=== PATIENT | female | born 1940 | race Caucasian/White ===

== ENCOUNTER 2025-02-28 19:01 | Inpatient (IN) | payer MEDICARE, BC, SELFPAY ==
[2025-02-28 14:14] VITALS: BP 135/74
[2025-02-28 14:52] LABS: % Basophils 0.2 % (0-2); % Eosinophils 0.9 % (0-6); % Immature Granulocytes 0.5 % (0-0.5); % Lymphocytes 8.5 % (20.5-51.1); % Monocytes 7.5 % (1.7-9.3); % Neutrophils 82.4 % (42.2-75.2); Absolute Eosinophils 0.1 10^3/uL (0-0.7); Absolute Immature Granulocytes 0.1 10^3/uL (0-0.05); Absolute Lymphocytes 1.2 10^3/uL (1.2-3.4); Absolute Monocytes 1.1 10^3/uL (0.1-0.6); Absolute Neutrophils 11.7 10^3/uL (1.4-6.5); Hematocrit 39.4 % (37.0-47.0); Mean Corpuscular Volume 87.9 fL (81.0-99.0); Mean Platelet Volume 9.8 fL (7.4-10.4); Nucleated Red Blood Cells % 0 %; Platelet Count 299 10^3/uL (130-400); Red Blood Cell Count 4.48 10^6/uL (4.20-5.40); Red Cell Dist. Width 14.4 % (11.5-14.5); White Blood Cell Count 14.2 10^3/uL (4.8-10.8)
[2025-02-28 15:13] LABS: ALT (SGPT) 16 U/L (0-35); AST (SGOT) 47 U/L (14-36); Albumin 3.6 g/dl (3.5-5.0); Alkaline Phosphatase 59 U/L (38-126); Blood Urea Nitrogen 22 mg/dl (7-17); Calcium 8.8 mg/dl (8.4-10.2); Carbon Dioxide 26 mmol/L (22-30); Chloride 103 mmol/L (98-107); Glucose 107 mg/dl (70-99); Potassium 3.9 mmol/L (3.5-5.1); Sodium 136 mmol/L (135-145); Total Bilirubin 1.1 mg/dl (0.2-1.3); Total Protein 6.3 g/dl (6.3-8.2); eGFR > 60.00
[2025-02-28 15:25] LABS: NT-proBNP 316 pg/ml; Troponin I 0.012 ng/ml
--- NOTE | 2025-02-28 16:19 | ED.GENMED ---
History of Present Illness
General
Chief Complaint: Breathing Problem
Time Seen by Provider: 02/28/25 16:02
History of Present Illness
History of Present Illness:
84-year-old female who presents to the emergency department for evaluation of shortness of breath for the past week. She was seen urgent care earlier in the week and treated for bronchitis with antibiotics and steroids but did not feel better.
Return to urgent care today and had chest x-ray showing a pleural effusion. Denies any fevers or chills. She has a mild dry cough. No URI symptoms. Denies any chest pain.
Review of Systems
Review of Systems
Allergies reviewed?: Yes
All Other Systems: ROS reviewed and negative except as documented in HPI and ROS
Phy Exam
Physical Exam
Physical Exam:
GEN: Well appearing, NAD, WDWN
HEENT: Oral mucosa moist, no scleral icterus
Cardiac: Regular rate and rhythm, no murmurs
Lung: Tachypneic, no accessory muscle use, grossly diminished breath sounds on the left
MSK: No gross deformity or injuries
Skin: Good color, no pallor or jaundice, no rashes
Neuro: AO x3, moves all extremities freely
Psych: Calm, cooperative
Scores
Heart Failure Risk
Heart Failure Risk Score: Not Applicable
Course
Orders/Labs/Results
Orders:
Orders
02/28/25 14:20
Electrocardiogram (*1) Urgent
Reason for Study: Chest Pain
EKG- Treatment ONCE
CR Chest - 2 Views Urgent
Comment:
Reason For Exam: sob/garsia x 1 week
02/28/25 14:40
Complete Blood Count/With Diff Urgent
Comprehensive Metabolic Panel Urgent
Free T4 Urgent
NT-proBNP Urgent
TSH Reflex To Free T4 Urgent
Comment: ADD ON
Troponin I Urgent
02/28/25 Dinner
Cholesterol Lowering
At Your Request: Full Participation
Cholesterol Lowering: Sodium, 2 Gram
02/28/25 18:40
Add On- LAB Urgent
Tests Added?: tsh with free t4 reflex
CefTRIAXone [Rocephin] 1,000 mg IV NOW STA
Doxycycline [Vibramycin] 100 mg PO NOW STA
02/28/25 18:41
Admit/Transfer Patient As Directed
Co-Sign Provider:
Level of Care: Inpatient admission
Assign to:: Medical/Surgical
Physician / Group: nancy yadav
Diagnosis: Large left-sided pleural effusion, anxiety
Reason for Hospitalization: Large left-sided pleural effusion, anxiety
Expected length of stay greater than two midnights?: Yes
ELOS- Estimated Length of Stay in days: 4
I certify the patient meets the requirements for IP care: Yes
02/28/25 18:47
PRN Pain Medication Management As Directed
May give lesser potent ordered pain med per pt: Yes
preference::
Protocol:: Medication orders for pain may be administered in a
manner that supports deferring to patient preference
when the pt is:
- Requesting an ordered lesser potent pain medication.
Least to most potent pain medications are defined
as: acetaminophen < NSAID < tramadol < opioids
(morphine, oxycodone, hydromorphone).
- Requesting a lesser dose of the same medication IF
ORDERED.
- Requesting a less intrusive route of administration
if both routes are prescribed by the provider (PO <
IV).
02/28/25 18:48
Code Status As Directed
Resuscitation Status: Full Code
02/28/25 19:09
COVID-19 Antigen Urgent
Source: Nasal Swab
Influenza A+B Rapid Molecular Urgent
NOLVIA Source: Nasal Swab
Specimen Description:
02/28/25 20:49
Acetaminophen [Tylenol] 650 mg PO Q4HPRN PRN
Diphenhydramine [Benadryl] 25 mg PO HSPRN PRN
Heparin 5,000 units SC Q12
Ipratropium/Albuterol Sulfate [Duoneb] 3 ml INH R Q4HPRN PRN
02/28/25 20:49
Add On- LAB Routine
Tests Added?: Body Fluid Triglycerides
IRAD CONSULT Routine
Consulting Provider: Rashard Mejia
Was physician already notified: Yes
Procedure being ordered, including laterality if applicable: Thoracentesis left-sided pleural effusion
Acknowledgement that appropriate orders are entered: Yes
Acid Fast Culture & Smear Routine
NOLVIA Source: Pleural Fluid
Specimen Description:
Comment: post procedure
Body Fluid Amylase Routine
Fluid Source: Pleural
Body Fluid Cell Count Routine
What is the Body Fluid: pleural fluid
Comment: post procedure
Body Fluid Glucose Routine
Fluid Source: Pleural
Body Fluid LDH Routine
Fluid Source: Pleural
Body Fluid Protein Routine
Fluid Source: Pleural
Body Fluid Triglycerides Routine
Fluid Source: Pleural
Body Fluid pH Routine
Fluid Source: Pleural
Glucose Routine
Hematocrit Routine
LDH Routine
Comment: post procedure, add on to morning labs if already drawn
Total Protein Routine
Comment: post procedure, add on to morning labs if already drawn
Fluid Culture with Gram Stain Routine
NOLVIA Source: Pleural Fluid
Specimen Description:
Comment: post procedure
Fungus Culture Routine
NOLVIA Source: Pleural Fluid
Specimen Description:
Fungus Smear Routine
NOLVIA Source: Pleural Fluid
Specimen Description:
Gram Stain Routine
NOLVIA Source: Pleural Fluid
Specimen Description:
Comment: POST PROCEDURE
Activity As Directed
Activity Level: With Assistance
Elevate head of bed [Head of Bed-Restrictions] As Directed
Elevation Level: 45 degrees
Frequency: At all times
Intake/ Output As Directed
Frequency: Per unit guidelines
Vital Signs As Directed
Frequency: Per unit guidelines
Weight As Directed
Frequency: Daily
IRAD Cytology Routine
Source: Pleural Fluid, Left
Clinical Impression: left plueral effusion unclear
O2 Therapy [RESP] Routine
Nasal Cannula Liter Flow: 2 LPM
Titrate/Wean O2 to maintain O2 sat greater than (%): 92
Pulse Ox/spot Check [RESP] Routine
Quantity: 1
Pt Eval And Treat Routine
Activity Level: As Tolerated
DX Deep Vein Thrombosis Video Routine
02/28/25 22:00
Methimazole [Tapazole] 10 mg PO BID
Sertraline HCl [Zoloft] 25 mg PO HS
03/01/25 06:00
CT Chest With Iv Contrast IN AM
Comment:
Reason For Exam: Large left pleural effusion
Complete Blood Count/With Diff IN AM
Comprehensive Metabolic Panel IN AM
03/01/25 08:00
Doxycycline [Vibramycin] 100 mg PO Q12
Fenofibrate 145 [Tricor] 145 mg PO DAILY
Losartan [Cozaar] 100 mg PO DAILY
Sertraline HCl [Zoloft] 50 mg PO DAILY
03/01/25 20:00
CefTRIAXone [Rocephin] 1,000 mg IV Q24H
03/02/25 06:00
Complete Blood Count/With Diff IN AM
Comprehensive Metabolic Panel IN AM
03/03/25 06:00
Complete Blood Count/With Diff IN AM
Comprehensive Metabolic Panel IN AM
Abnormal Lab Results
02/28/25
14:40
WBC 14.2 H 10^3/uL
(4.8-10.8)
Abs Immat Gran (auto) 0.1 H 10^3/uL
(0-0.05)
Absolute Neuts (auto) 11.7 H 10^3/uL
(1.4-6.5)
Absolute Monos (auto) 1.1 H 10^3/uL
(0.1-0.6)
Neutrophils % 82.4 H %
(42.2-75.2)
Lymphocytes % 8.5 L %
(20.5-51.1)
BUN 22 H mg/dl
(7-17)
Glucose 107 H mg/dl
(70-99)
AST 47 H U/L
(14-36)
TSH (Reflex) 27.80 H uIU/ml
(0.47-4.68)
Free T4 0.62 L ng/dl
(0.78-2.19)
02/28/25 14:40
02/28/25 14:40
Vital Signs
Initial and Last Documented VS:
Initial Vital Signs
Temp Pulse Resp BP Pulse Ox
97.6 F 90 20 135/74 97
02/28/25 14:14 02/28/25 14:14 02/28/25 14:14 02/28/25 14:14 02/28/25 14:14
Last Documented Vital Signs
Temp Pulse Resp BP Pulse Ox
98.3 F 85 20 169/83 98
02/28/25 21:08 02/28/25 22:11 02/28/25 22:11 02/28/25 21:08 02/28/25 22:11
MDM/Problems Addressed
MDM/Problems Addressed:
X-ray reveals a large left pleural effusion, will admit for IR consultation and further management
*Critical Care Note
Total Time (30-74mins, 75-104mins- exclusive of procedures): Not Applicable
ED Attending Note
-
Portions of this chart may have been created with voice recognition software.� Occasional wrong word or��sound alike� substitutions may have occurred due to the inherent limitations of voice recognition software.
Discharge Plan
Departure
Patient Disposition: Admit
Date of Disposition: 02/28/25
Time of Disposition: 16:22
Admit to: Med/Surg
Presentation/result/management discussed w/ accepting MD/DO: Hospitalist
Discharge Problem:
Pleural effusion
Interventions
Interventions:
*Risk Screen - Suicide Last Done: 02/28/25 14:14
*General Assessment Last Done: 02/28/25 14:14
*Neglect/Abuse Screening Last Done: 02/28/25 14:14
*ED- Fall Risk Assessment Last Done: 02/28/25 19:10
*ED COVID-19 Vaccine History Last Done: 02/28/25 20:47
*Nursing Disposition Last Done: 02/28/25 20:47
ED- Cardiac Assessment Last Done: 02/28/25 16:00
ED- Pulmonary Assessment Last Done: 02/28/25 16:00
Discharge Date and Time
Discharge Date/Time: 02/28/25 20:48
--- NOTE | 2025-02-28 18:06 | HPS.HSE ---
Family Physician
-
Family Physician: * NONE
Chief Complaint
-
Shortness of breath large pleural effusion on chest x-ray from urgent care
History of Present Illness
84-year-old female from her apartment, where she lives alone who was seen earlier in the week at urgent care treated for bronchitis with albuterol inhaler twice daily x 5 days and prednisone 20 mg twice daily x 5 days but was not feeling better.
She returned to the urgent care today who did chest x-ray showing a large left-sided pleural effusion and referred her to the ER for evaluation. She reports shortness of breath x 1 week with a dry cough. She denies headache, fever, chills, sore
throat, chest pain, palpitations, abdominal pain, nausea, vomiting, diarrhea, urinary symptoms, sick contacts. Her daughter states her anxiety has been extremely increased to the point of crying. She increased her Zoloft to 25 mg twice daily for
the past week until she can get her into her PCP I advised her I will give her her p.m. dose then started at 50 mg daily as her LFTs are normal. I advised her to still keep appointment with her PCP. Patient is very hard of hearing she does report
feeling better on oxygen however she was not hypoxic
She has past medical history COPD, HTN, HLD, depression/anxiety.
Medical History
Past Medical History
Past Medical History: Reports Other
Additional Past Medical History:
COPD
HTN
HLD
Depression/Anxxiety
[place]
Past Surgical History: Reports Other
Additional Past Surgical History:
Left shoulder replacement
Left elbow replacement
Cholecystectomy
Social History
Tobacco: Former Smoker
Alcohol: None
Drug: None
Personal: Single
Living: Alone
Employment: Retired
Family History
Family History: Not pertinent
Allergies / Home Medications
Allergies reflects when Allergies were last updated in [facility].
Home Medications with original date entered in [facility]
Allergy/Medication List:
Allergies
Allergy/AdvReac Type Severity Reaction Status Date / Time
No Known Allergies Allergy Unverified 02/28/25 14:14
Home Medications
fenofibrate 145 mg PO DAILY 02/28/25
fluticasone propionate 1 puff inhalation BID 02/28/25
losartan 100 mg tablet 100 mg PO DAILY 02/28/25
methimazole 10 mg PO BID 02/28/25
sertraline 25 mg tablet (Zoloft) 25 mg PO DAILY 02/28/25
Review of Systems
-
History Source: Patient and Family (Daughter and son-in-law at bedside)
A 12 point ROS was completed and negative except as noted: Yes
Constitutional: Reports Other (Reported anxiety); Denies Fever or Chills
EENT: Denies Sore Throat or Runny Nose
Respiratory: Reports Cough (Dry) and Trouble Breathing
Cardiac: Denies Chest Pain, Diaphoresis, Palpitations or Syncope
Abdomen/GI: Denies Abdominal Pain, Nausea, Vomiting, Diarrhea, Constipated, Bloody Stools or Black Stools
: Denies Dysuria, Frequency, Flank Pain, Incontinence, Difficulty Voiding or Urgency
Musculoskeletal: Denies Joint Pain or Edema
Skin: Denies Itching or Rash
Neurological: Denies Dizzy or Headache
Endocrine: Reports No Symptoms
Hematologic/Lymphatic: Reports No Symptoms
Psych: Reports Calm
Physical Exam
Vital Signs
Vital Signs
Temp Pulse Resp BP Pulse Ox
97.6 F 90 20 135/74 97
02/28/25 14:14 02/28/25 14:14 02/28/25 14:14 02/28/25 14:14 02/28/25 14:14
Physical Exam
General: Conversant; No Pain, Fever or Chills
HEENT: NormoCephalic, Anicteric, Moist mucous membranes, PERRLA, [place] Conjunctivae, No Ptosis and Other (Chronic [place])
Respiratory: Other (Absent breath sounds left lung right CTA)
Cardiac: S1/S2 and Regular Rhythm; No Murmur, Rub, Gallop or Peripheral Edema
Breast: Deferred by me
GI: Soft, Non Tender, Non Distended, Normal Bowel Sounds and No Hepatosplenomegaly
Genito-urinary: Deferred by me
Musculoskeletal: No Clubbing, No Cyanosis and No Edema
Skin: Warm and Dry; No Rash
Neuro: AO x 3, No Motor Deficits, Nonfocal/grossly intact, Cranial Nerves Intact and No Sensory Deficits; No Slurred Speech, Facial Droop, Tremors or Sedated
Psych: Calm
Laboratory Results
-
02/28/25 14:40
02/28/25 14:40
Laboratory Results
Total Bilirubin 1.1 mg/dl (0.2-1.3) 02/28/25 14:40
AST 47 U/L (14-36) H 02/28/25 14:40
ALT 16 U/L (0-35) 02/28/25 14:40
Alkaline Phosphatase 59 U/L (38-126) 02/28/25 14:40
Troponin I 0.012 ng/ml 02/28/25 14:40
Data Reviewed
-
Lab Data: Labs Reviewed by me
Impression/Plan
-
Impression/plan:
Admit to MedSurg
#Large left pleural effusion unclear etiology
#Leukocytosis likely secondary to recent prednisone 20 mg twice daily
WBC 14.2 with left shift, afebrile 97.6F, HR 90, 135/74
97% RA, 99% 2 L nasal cannula
- Consult IR for Thoracentesis with cytology
- Monitor pulse oximetry
- IV Rocephin, p.o. doxycycline 1 mg twice daily
- Check CT chest with contrast in a.m.
- Consult pulmonary
CXR: Large left pleural effusion with associated atelectasis and/or pneumonia
EKG: Accelerated junctional rhythm 89 bpm, QTc 438 MS no previous EKGs
#COPD�no acute exacerbation
-Continue albuterol inhaler as needed, fluticasone 100/50 mcg 1 puff twice daily
#Acute on chronic anxiety/depression
Patient on Zoloft 25 mg daughter increased Zoloft to 25 mg twice daily due to extreme anxiety, crying tearful for several months she increased it over the past 1 week
I will give Zoloft 25 mg this evening then start Zoloft 50 mg daily given LFTs are normal
I advise daughter to keep her appointment with patient's PCP to make her aware and follow patient's lab work while on this medication
-We will check TSH with free T4 reflex given history of hyperthyroidism
#HTN
BP 135/74
Continue losartan 100 mg daily with hold parameters
#HLD
- Continue fenofibrate 145 mg daily
#Hyperthyroidism
-Check TSH with free T4 reflex
-Continue methimazole 10 mg twice daily
#Insomnia
- Patient reports melatonin makes her feel agitated and itchy
- Will try Benadryl
DVT prophylaxis
Subcu heparin
Full code
[2025-02-28 19:10] VITALS: BMI 33.1
[2025-02-28] MEDS: VIBRAMYCIN 100 MG PO (19:14)
[2025-02-28] MEDS: STERILE WATER FOR INJECTION 10 ML IV (19:14)
[2025-02-28] MEDS: ROCEPHIN 1000 MG IV (19:14)
[2025-02-28 19:22] VITALS: BP 180/86
[2025-02-28 19:35] LABS: COVID-19 Antigen Negative (Negative)
--- NOTE | 2025-02-28 19:43 | W.PN.UPDATE ---
Update Note
Progress Note Update
This note serves as an addendum to the H&P by principal network engineer JOSY Concha VILLEDA
HPI
84F remote HX former smoker, COPD, not on home O2 seen at ER:
- for evaluation of shortness of breath for the past week.
- was seen urgent care earlier in the week and treated for bronchitis with antibiotics and steroids but did not feel better. - Return to urgent care today and had chest x-ray showing a pleural effusion.
- mild dry cough. No URI symptoms.
ROS:
Denies any fevers or chills
Denies any chest pain.
Reviewed VS: unremarkable
Reviewed VS: afebrile
PE
Gen: NAD, wearing NC O2
HEENT: [place] , nl speech
Neck: supple
Lungs: symmetric AE. No wheeze
Cor: RRR S1 S2
Abdomen: soft benign
STAGE RIGGER: AAO#, NFND
MS: no edema
Psych: nl mood and nl affect
Labs
02/28/25 02/28/25
14:40 19:09
WBC 14.2 H
BUN 22 H
Creatinine 0.8
AST 47 H
Troponin I 0.012
Ldg-N-Euwucybyazu Pept 316
SARS-CoV-2 Antigen Negative
CXR
Large left pleural effusion with associated atelectasis and/or PNA
EKG: Accelerated junctional rhythm 89 bpm, QTc 438 MS no previous EKGs
ASSESSMENT & PLAN
Symptomatic new Large left pleural effusion unclear etiology
- DDX; parapneumonic vs. Malignant
- Leukocytosis likely secondary to recent prednisone 20 mg twice daily
- afebrile , hemodynamically stable
- 97% RA, 99% 2 L nasal cannula
- Empiric IV CFTZ and PO Doxy
- Check CTC with contrast in AM
- Pul Consult
- IR consult for Dx-tic and Rx-tic Lt sided thoracentesis with cytology
HX COPD� no acute flare
- on BEET FLUMER albuterol inhaler as needed, fluticasone 100/50 mcg 1 puff twice daily
HX anxiety/depression
crying tearful for several months
- escalde Zoloft 25 mg twice daily [address] of once daily due to extreme anxiet
- appointment with patient's PCP to make her aware and follow patient's lab work while on this medication
- TSH with free T4 reflex given history of hyperthyroidism
Benign HTN
- c/w losartan 100 mg daily with hold parameters
HLD
- cont fenofibrate 145 mg daily
Hyperthyroidism on Methimazole
- check TSH with free T4 reflex
- cont methimazole 10 mg BID
Insomnia
- melatonin makes her feel agitated and itchy
DVT prophylaxis: SQH
Full Code:
IP MS
[2025-02-28 20:29] LABS: Free T4 0.62 ng/dl (0.78-2.19)
[2025-02-28 21:08] VITALS: BP 169/83
[2025-02-28 21:09] VITALS: BMI 31.8
[2025-02-28] MEDS: HEPARIN SC (21:49)
[2025-02-28] MEDS: BENADRYL 25 MG PO (21:49)
[2025-02-28] MEDS: TAPAZOLE 10 MG PO (21:49)
[2025-02-28] MEDS: DUONEB 3 ML INH (22:07)
[2025-02-28 23:00] VITALS: BP 166/84
[2025-03-01] VITALS (7 sets, daily range): BP systolic 79–169; BP diastolic 65–83; PULSE 86; O2SAT 97; BMI 31.8
[2025-03-01 06:56] LABS: % Basophils 0.3 % (0-2); % Eosinophils 1.6 % (0-6); % Immature Granulocytes 0.6 % (0-0.5); % Lymphocytes 7.9 % (20.5-51.1); % Monocytes 8.8 % (1.7-9.3); % Neutrophils 80.8 % (42.2-75.2); Absolute Eosinophils 0.2 10^3/uL (0-0.7); Absolute Immature Granulocytes 0.1 10^3/uL (0-0.05); Absolute Monocytes 1.1 10^3/uL (0.1-0.6); Absolute Neutrophils 9.7 10^3/uL (1.4-6.5); Hematocrit 35.5 % (37.0-47.0); Hemoglobin 11.8 g/dL (12.0-16.0); Mean Corp Hgb Conc. 33.2 g/dL (33.0-37.0); Mean Corpuscular Hgb 29.3 pg (27.0-31.0); Mean Corpuscular Volume 88.1 fL (81.0-99.0); Mean Platelet Volume 9.8 fL (7.4-10.4); Nucleated Red Blood Cells % 0 %; Platelet Count 257 10^3/uL (130-400); Red Blood Cell Count 4.03 10^6/uL (4.20-5.40); Red Cell Dist. Width 14.2 % (11.5-14.5)
[2025-03-01 07:29] LABS: ALT (SGPT) 14 U/L (0-35); AST (SGOT) 45 U/L (14-36); Alkaline Phosphatase 52 U/L (38-126); Blood Urea Nitrogen 19 mg/dl (7-17); Calcium 8.5 mg/dl (8.4-10.2); Carbon Dioxide 22 mmol/L (22-30); Chloride 105 mmol/L (98-107); Estimated Creatinine Clearance 50 ml/min; Glucose 85 mg/dl (70-99); Potassium 4.1 mmol/L (3.5-5.1); Sodium 135 mmol/L (135-145); Total Bilirubin 1.1 mg/dl (0.2-1.3); Total Protein 5.6 g/dl (6.3-8.2); eGFR > 60.00
[2025-03-01] MEDS: TAPAZOLE 10 MG PO ×2 (08:30→21:30)
[2025-03-01] MEDS: VIBRAMYCIN 100 MG PO ×2 (08:30→21:31)
[2025-03-01] MEDS: ZOLOFT 50 MG PO (08:30)
[2025-03-01] MEDS: TRICOR 145 MG PO (08:31)
[2025-03-01] MEDS: COZAAR 100 MG PO (08:31)
[2025-03-01] MEDS: HEPARIN 5000 UNITS SC ×2 (08:35→21:29)
--- NOTE | 2025-03-01 10:46 | W.PN.HOSP.TC ---
Today's Communication/Plan
-
Assessment / Plan
Assessment / Plan
acute hypoxic respiratory failure secondary to left sided large pleural effusion
-ir to drain
-send fluid for analysis
-check ct scan to assess the extent/interstitial disease/nodules/neoplastic disease
-wean o2 as tolerated
sepsis secondary to likely pna with pleural effusion
-iv antibiotics for CAP coverage
-no cultures obtained
COPD�no acute exacerbation
-Continue albuterol inhaler as needed, fluticasone 100/50 mcg 1 puff twice daily
Acute on chronic anxiety/depression
Patient on Zoloft 25 mg daughter increased Zoloft to 25 mg twice daily due to extreme anxiety, crying tearful for several months she increased it over the past 1 week
I will give Zoloft 25 mg this evening then start Zoloft 50 mg daily given LFTs are normal
I advise daughter to keep her appointment with patient's PCP to make her aware and follow patient's lab work while on this medication
-We will check TSH with free T4 reflex given history of hyperthyroidism
HTN
Continue losartan 100 mg daily with hold parameters
HLD
- Continue fenofibrate 145 mg daily
Hyperthyroidism
-Check TSH with free T4 reflex
-Continue methimazole 10 mg twice daily
Insomnia
- Reports melatonin makes her feel agitated and itchy
- Will try Benadryl
Anticipated Discharge: 24 - 48 hours
Subjective/Interval History
-
Date of Service: March 01, 2025
seen and examiend
no new complaitns.
no acute overnight events
[facility] - hearing aids charging
son irish at bedisde provided update
Objective Data
-
Labs:
Laboratory Results
02/28/25 03/01/25
20:49 06:36
WBC 12.0 H
Hgb 11.8 L
Hct Cancelled 35.5 L
Plt Count 257
Sodium 135
Potassium 4.1
Chloride 105
Carbon Dioxide 22
BUN 19 H
Creatinine 0.7
Glucose Cancelled 85
Calcium 8.5
Total Bilirubin 1.1
AST 45 H
ALT 14
Alkaline Phosphatase 52
Vital Signs:
Vital Signs
Temp Pulse Resp BP Pulse Ox
97.9 F 85 20 158/77 97
03/01/25 07:40 03/01/25 08:31 03/01/25 07:40 03/01/25 08:31 03/01/25 07:40
Physical Exam
-
General: Well Developed and Well Nourished
HEENT: Normocephalic and Atraumatic
Respiratory: Decreased Breath Sounds (abscent breath sound LLL. otherwise cta through rest of left and all of right lung)
Cardiac: Regular Rhythm and S1/S2
Breast: Deferred by me
GI: Soft, Nontender, Nondistended and Normal Bowel Sounds
Rectal: Deferred by Provider
Skin: Warm and Dry
Neuro: Awake, Alert, Oriented and AO x 3
Psych: Calm
[2025-03-01 12:25] LABS: Body Fluid pH 7.37
[2025-03-01 12:28] LABS: Body Fluid WBC 3691 /CUMM
[2025-03-01 12:32] LABS: Body Fluid Second Tech BP
[2025-03-01 12:55] LABS: Body Fluid Amylase 37 U/L; Body Fluid Glucose 68 mg/dl; Body Fluid LDH 669 U/L; Body Fluid Protein 3.8 g/dl; Body Fluid Triglycerides < 30 mg/dl
--- NOTE | 2025-03-01 13:37 | CON.PUL ---
Consultation
Consultation Request
Date/Time Consultation Requested: 02/28/2025
Date/Time Consultation Performed: 03/01/2025
Requesting Provider: Ricardo Guaman
Performing Provider: Pattie Ceballos
Reason for Consultation: Pleural effusion
Medical History
-
Chief Complaint: Shortness of breath
History of Present Illness:
Patient is a very pleasant 84-year-old female who presents to the emergency room for worsening shortness of breath. Patient reports that for about 7 to 10 days she has had cough and shortness of breath concerning for bronchitis. She was evaluated
as an outpatient at an urgent care and was treated with albuterol inhaler as well as prednisone for 5 days but she has not felt better. She returned to the urgent care where x-ray was performed which showed a large left-sided pleural effusion and
was referred to emergency room. Patient does report shortness of breath with mild cough. Does not use any expectoration or hemoptysis. No fever, chills, chest pain, pleuritic discomfort etc. Does not report any runny nose, sore throat or sick
contacts.
Patient reports longstanding history of smoking, close to [id number] smoking history. Quit about 20 years ago.
Pulmonary consultation was requested for further input in view of concerning findings on the CT scan including large pleural effusion, possible trapped lung, mediastinal lymphadenopathy
Past Medical History
Past Medical History: Reports Other
Additional Past Medical History:
COPD
HTN
HLD
Depression/Anxxiety
[place]
Past Surgical History: Reports Other
Additional Past Surgical History:
Left shoulder replacement
Left elbow replacement
Cholecystectomy
Social History
Tobacco: Former Smoker
Alcohol: None
Drug: None
Personal: Single
Living: Alone
Employment: Retired
Family History
Family History: Not pertinent
Allergies / Home Medications
Allergies / Home Medications
Allergies
Allergy/AdvReac Type Severity Reaction Status Date / Time
No Known Allergies Allergy Unverified 02/28/25 14:14
Home Medications
�Medication �Instructions �Recorded �Confirmed �Last Taken �Type
fenofibrate 145 mg PO DAILY 02/28/25 02/28/25 02/28/25 09:00 History
fluticasone propionate 1 puff inhalation BID 02/28/25 02/28/25 02/28/25 09:00 History
losartan 100 mg tablet 100 mg PO DAILY 02/28/25 02/28/25 02/28/25 09:00 History
methimazole 10 mg PO BID 02/28/25 02/28/25 02/28/25 09:00 History
sertraline 25 mg tablet (Zoloft) 25 mg PO DAILY 02/28/25 02/28/25 02/28/25 09:00 History
Review of Systems
-
Hematologic/Lymphatic: Other (Patient reports decreased appetite over the last few weeks. Does not report any weight loss. All 14 systems reviewed and negative except as stated above in the history of present illness.)
Vitals / Labs / Diagnostic Testing
Vital Signs
Temp Pulse Resp BP Pulse Ox
97.9 F 79 18 150/65 99
03/01/25 11:15 03/01/25 11:53 03/01/25 11:53 03/01/25 11:53 03/01/25 11:50
Lab Data
03/01/25 06:36
03/01/25 06:36
Microbiology
03/01/25 11:41 Pleural Fluid Fungal Culture - Preliminary
Culture in progress.
Positive cultures are reported as soon as detected.
Final report to follow in four to five weeks.
02/28/25 19:09 Nasal Swab Influenza Types A & B (RICHARD) - Final
Negative for Influenza A & B, NAAT
Negative results must be combined with clinical observations
and patient history.
Nucleic Acid Amplification test (NAAT)performed on the
[employer] platform.
Diagnostic Testing:
Physical Exam
-
HEENT: Normocephalic
Cardiovascular: S1/S2
Respiratory: Wheeze (No wheezing.) and Other (Decreased air entry in the left posterior base.)
GI: Soft and Non Distended
Neurology: Awake, Alert and Oriented
General: Comfortable
Assessment
-
#1. Acute hypoxic respiratory failure with large left sided pleural effusion with suspected trapped lung. ?Etiology.
-s/p Thoracentesis 03/01. Exudate effusion, LDH 669, Protein 3.8, Glucose 68.
-Differential diagnosis includes Infectious vs malignancy etiologies
-Follow up on Cultures. Patient has been on ceftriaxone and Zithromax, which can be continued for now.
-Await Cytology. If cytology is negative, likely will need repeat thoracentesis versus a bronchoscopy with EBUS as enlarged station [address] scan
-Trapped lung noted on CT scan with thickened pleura, again suspicious for malignancy/infection. Await cytology before making further recommendations. If cytology were to be positive, patient might need indwelling pleural catheter.
- CT scan was performed prior to thoracentesis and shows a lot of compressive atelectasis on the left side. If patient were to need bronchoscopy and EBUS, will favor getting a CT scan post-thoracentesis to evaluate pulmonary parenchyma better,
considering current image suspicious for a central neoplasia with narrowing of proximal left upper lobe and left lower lobe bronchi however it could be related to extrinsic compression from pleural effusion also.
- Adrenal gland nodularity noted concerning for metastatic disease, recommend CT abdomen pelvis with contrast for further evaluation
#2. Mediastinal lymphadenopathy. This is again concerning for both infectious and malignant etiologies.
- Await pleural fluid cytology
- Await post-thoracentesis CT chest, abdomen and pelvis
- Continue antibiotics and follow-up on pleural fluid cultures
#3. COPD with history of smoking. Patient reports known diagnosis of COPD. Does not follow-up with any tail board man and has not had any pulmonary function testing in the past.
- 50+ pack year smoking history, quit about 20 years ago.
- Reports using fluticasone and albuterol as needed at home.
- No wheezing on exam, continue DuoNeb as needed for now
#4. Pneumonia versus compressive atelectasis due to pleural effusion.
- Continue treatment for CAP for now, follow-up on pleural fluid cultures
- Await post-thoracentesis follow-up imaging
Other medical diagnoses:
-DM
-HTN
-HLD
-Insomnia
-Hyperthyroidism. TSH appears to be very high, likely over suppressed thyroid gland. Defer to primary team. Hypothyroidism can also cause pleural effusion.
Updated patient and her grandson at bedside.
Total time spent on this consultation/encounter _68___ minutes which includes review of history, physical exam, medications, laboratory data, personal review of imaging, extensive review of outpatient records, discussion with care team and
respiratory therapy.
Data:
CT Chest 03/01/2025: Large left pleural effusion with thickened peripheral rind, suggesting malignant pleural effusion.
Atelectasis of much of the left upper lobe and left lower lobe.
Narrowing of the proximal left upper lobe and left lower lobe bronchi, raising concern for central neoplasia. Consider follow-up imaging after treatment/thoracentesis.
Enlarged lymph nodes within the mediastinum, suspicious for neoplastic lymphadenopathy.
Focal lucency involving the left side of the L1 vertebral body. This is suspicious for neoplastic lesion, although could possibly represent a benign lesion such as hemangioma. As warranted, consideration for further evaluation with nuclear medicine
bone scan or MRI of the lumbar spine.
Nodularity of the adrenal glands bilaterally, with main differential considerations of adenomas and metastatic disease.
--- NOTE | 2025-03-01 16:43 | CM ---
Alert awake confused patient who lives in apartment at [address] [place] [facility].Dayton Orozco visited and provided information. She used a walker here in hospital.
No VN in past . No SNF hx
Pharmacy [facility] [address] [facility]
PCP Dr Tiwari
PLAN Will need PT OT for dc planning needs
[2025-03-01] MEDS: STERILE WATER FOR INJECTION 10 ML IV (21:26)
[2025-03-01] MEDS: ROCEPHIN 1000 MG IV (21:26)
[2025-03-02 06:00] VITALS: BMI 31.2
--- NOTE | 2025-03-02 06:28 | W.PN.HOSP.TC ---
Today's Communication/Plan
-
see a/p
Assessment / Plan
Assessment / Plan
Physical Exam
General: no acute distress, appears comfortable at this time.
HEENT: Normocephalic and Atraumatic
Respiratory: Decreased Breath Sounds LLL. otherwise cta throughout rest of left and all of right lung
Cardiac: Regular Rhythm and S1/S2
GI: Soft, Nontender, Nondistended and Normal Bowel Sounds
Skin: Warm and Dry
Neuro: AO x 3 conversant coherent
Psych: Calm
84F COPD HTN HLD Depression/Anxiety Hyperthyroidism here for large left pleural effusion suspected malignant
acute hypoxic respiratory failure secondary to left sided large pleural effusion
-IR cate appreciated 1000 ML drained during thoracentesis
-follow up pathology results
-CT scan appreciated concerning for central neoplasia, neoplastic lymphadenopathy, possible L1 vertebrae neoplastic lesion, nodularity adrenal glands possible adenomas vs met dz
-wean o2 as tolerated
-Pulm eval appreciated patient/family considering how aggressive they want to pursue malignancy work up.
sepsis secondary to likely pna with pleural effusion
-ceftriaxone doxycycline
-follow fluid cultures
COPD�no acute exacerbation
-Continue albuterol inhaler as needed, fluticasone 100/50 mcg 1 puff twice daily
Acute on chronic anxiety/depression
Patient on Zoloft 25 mg daughter increased Zoloft to 25 mg twice daily due to extreme anxiety, crying tearful for several months she increased it over the past 1 week
Cont Zoloft 50 mg daily started this hospitalization
HTN
Continue losartan 100 mg daily with hold parameters
HLD
- Continue fenofibrate 145 mg daily
Hyperthyroidism
Iatrogenic Hypothyroidism
-TSH elevated with suppressed free T4 reflex
-home Methimazole 10 mg twice daily reduced to daily
-repeat TFT in 1 month recommended
Insomnia
- Reports melatonin makes her feel agitated and itchy
- Benadryl prn
DVT ppx heparin
Full Code
I spent a total of 50 minutes with the patient or on the floor. More than 50% of this time involved counseling and coordination of care.
Anticipated Discharge: 24 - 48 hours
Subjective/Interval History
-
Date of Service: March 02, 2025
No acute distress, resting comfortable in bed. Remains on oxygen supplementation. Reports feeling relatively well. Pain at site of thoracentesis.
Objective Data
-
Labs:
Laboratory Results
03/02/25
06:00
WBC Pending
Hgb Pending
Hct Pending
Plt Count Pending
Sodium Pending
Potassium Pending
Chloride Pending
Carbon Dioxide Pending
BUN Pending
Creatinine Pending
Glucose Pending
Calcium Pending
Total Bilirubin Pending
AST Pending
ALT Pending
Alkaline Phosphatase Pending
Vital Signs:
Vital Signs
Temp Pulse Resp BP Pulse Ox
98 F 79 20 150/69 96
03/01/25 23:00 03/01/25 23:00 03/01/25 23:00 03/01/25 23:00 03/01/25 23:00
I&O
02/28/25 03/01/25 03/02/25
06:59 06:59 06:59
Intake Total 1200 / 1200
Balance 1200 / 1200
[2025-03-02 07:40] VITALS: BP 171/66
[2025-03-02 08:26] LABS: % Basophils 0.4 % (0-2); % Eosinophils 1.5 % (0-6); % Immature Granulocytes 0.4 % (0-0.5); % Lymphocytes 8.2 % (20.5-51.1); % Monocytes 10.1 % (1.7-9.3); % Neutrophils 79.4 % (42.2-75.2); Absolute Eosinophils 0.2 10^3/uL (0-0.7); Absolute Lymphocytes 0.8 10^3/uL (1.2-3.4); Absolute Neutrophils 8.2 10^3/uL (1.4-6.5); Hematocrit 36.3 % (37.0-47.0); Hemoglobin 12.1 g/dL (12.0-16.0); Mean Corp Hgb Conc. 33.3 g/dL (33.0-37.0); Mean Corpuscular Hgb 29.2 pg (27.0-31.0); Mean Corpuscular Volume 87.5 fL (81.0-99.0); Mean Platelet Volume 10.4 fL (7.4-10.4); Nucleated Red Blood Cells % 0 %; Platelet Count 253 10^3/uL (130-400); Red Blood Cell Count 4.15 10^6/uL (4.20-5.40); Red Cell Dist. Width 14.3 % (11.5-14.5); White Blood Cell Count 10.3 10^3/uL (4.8-10.8)
[2025-03-02 08:46] LABS: ALT (SGPT) 14 U/L (0-35); AST (SGOT) 39 U/L (14-36); Albumin 2.7 g/dl (3.5-5.0); Alkaline Phosphatase 50 U/L (38-126); Blood Urea Nitrogen 21 mg/dl (7-17); Calcium 8.4 mg/dl (8.4-10.2); Carbon Dioxide 26 mmol/L (22-30); Chloride 102 mmol/L (98-107); Estimated Creatinine Clearance 49 ml/min; Glucose 86 mg/dl (70-99); Sodium 135 mmol/L (135-145); Total Protein 5.2 g/dl (6.3-8.2); eGFR > 60.00
[2025-03-02] MEDS: TRICOR 145 MG PO (08:54)
[2025-03-02] MEDS: COZAAR 100 MG PO (08:54)
[2025-03-02] MEDS: TAPAZOLE 10 MG PO ×2 (08:54→19:50)
[2025-03-02] MEDS: ZOLOFT 50 MG PO (08:54)
[2025-03-02] MEDS: VIBRAMYCIN 100 MG PO ×2 (08:54→19:50)
[2025-03-02] MEDS: HEPARIN 5000 UNITS SC ×2 (08:55→19:49)
--- NOTE | 2025-03-02 09:28 | W.PN.PUL.V3 ---
Today's Communication / Plan
-
Wean oxygen
Incentive spirometry
Increase activity
Empiric antibiotics
Await pleural fluid cytology
Assessment
-
Patient is a very pleasant 84-year-old female who presents to the emergency room for worsening shortness of breath. Patient reports that for about 7 to 10 days she has had cough and shortness of breath concerning for bronchitis. She was evaluated
as an outpatient at an urgent care and was treated with albuterol inhaler as well as prednisone for 5 days but she has not felt better. She returned to the urgent care where x-ray was performed which showed a large left-sided pleural effusion and
was referred to emergency room
Hypoxemia with large left pleural effusion
Left pleural effusion-suspect trapped lung
Mediastinal lymphadenopathy
COPD with [id number] smoking history quit 20 years ago
Pneumonia versus compressive atelectasis
Conditions present prior to admission:
DM
HTN
HLD
COPD
Insomnia
Anxiety
Hyperthyroidism. TSH appears to be very high, likely over suppressed thyroid gland. Defer to primary team. Hypothyroidism can also cause pleural effusion.
Plan
Respiratory decompensation likely due to pleural effusion, pneumonia and underlying COPD
Supplemental oxygen as needed
Aspiration precautions
Nebulizers if needed-currently not bronchospastic
Observe off steroids
Check cultures
Sputum culture if possible
Pleural fluid cultures
Empiric antibiotics-ceftriaxone and doxycycline
Monitor leukocytosis and temperature curve
Thoracentesis 03/01/25--1000 fV-qtwpz-[id number] fluid-halted due to pleurisy
Pleural fluid analysis 03/01/20257071-vpjcjjn-qW 7.37, total protein 3.8, LDH 669, amylase 37
Pleural fluid microbiology 03/01/2025-WBCs seen, no organisms, cultures pending
Pleural fluid cytology 03/01/2025-pending
Follow-up for fluid reaccumulation
Consider repeat therapeutic and potentially diagnostic thoracentesis-patient somewhat leery with significant pleurisy on last thoracentesis
CT chest summarized below-some suspicion for potential underlying malignancy with multiple abnormalities
Await pleural fluid cytology
Dr. Shrestha reviewed with son at the bedside at length-based on age and comorbidities he believes the patient would not want to pursue aggressive treatment options if this was an underlying malignancy-he will discuss it with his brothers and sisters
and their mother-if she would not want therapy for malignancy then aggressive needs of workup would also not be recommended-such as bronchoscopy with station 7 lymph node biopsy
DVT prophylaxis-on subcu heparin
Nutrition
Early mobilization
Dr. Shrestha reviewed at length with son at the bedside-see conversation above
Outpatient pulmonary follow-up
Data:
CT Chest 03/01/2025: Large left pleural effusion with thickened peripheral rind, suggesting malignant pleural effusion.
Atelectasis of much of the left upper lobe and left lower lobe.
Narrowing of the proximal left upper lobe and left lower lobe bronchi, raising concern for central neoplasia. Consider follow-up imaging after treatment/thoracentesis.
Enlarged lymph nodes within the mediastinum, suspicious for neoplastic lymphadenopathy.
Focal lucency involving the left side of the L1 vertebral body. This is suspicious for neoplastic lesion, although could possibly represent a benign lesion such as hemangioma. As warranted, consideration for further evaluation with nuclear medicine
bone scan or MRI of the lumbar spine.
Nodularity of the adrenal glands bilaterally, with main differential considerations of adenomas and metastatic disease.
Subjective Data
-
Date of Service:
Date of Service: March 02, 2025
Chief Complaint: Pulmonary Follow Up and Dyspnea Follow Up
Subjective:
Feels a little better, pain at site of thoracentesis improved, no chest pain or abdominal pain
Review of Systems
General: Chills (Per HPI)
Objective Data
Data Reviewed
Vital Signs / I&O:
Vital Signs
Temp Pulse Resp BP Pulse Ox
98.3 F 75 18 171/66 98
03/02/25 07:40 03/02/25 08:54 03/02/25 07:40 03/02/25 08:54 03/02/25 07:40
Intake and Output
03/01/25 03/02/25 03/03/25
06:59 06:59 06:59
Intake Total 1200 / 1200
Balance 1200 / 1200
SaO2: 98
Nasal Cannula flow liters per minute: 2
Physical Exam
General: Respiratory Distress (n) and Comfortable
HEENT: Normocephalic, Anicteric and Moist Mucous Membranes
Cardiovascular: Regular Rhythm
Respiratory: Wheeze (n), Crackles, Non-Labored Respirations, Accessory Resp Muscle Use (n) and Stridor (n)
GI: Soft, Non Distended and Non Tender
Neurology: Awake, Alert and No Motor Deficits
Skin: Warm, Dry, Good Color (n), Cyanosis (n) and Jaundice (n)
Labs/Micro/Reports
Lab Data
03/02/25 07:18
03/02/25 07:18
Microbiology
03/01/25 11:41 Pleural Fluid Gram Stain - Preliminary
03/01/25 11:41 Pleural Fluid Fungal Culture - Preliminary
Culture in progress.
Positive cultures are reported as soon as detected.
Final report to follow in four to five weeks.
02/28/25 19:09 Nasal Swab Influenza Types A & B (RICHARD) - Final
Negative for Influenza A & B, NAAT
Negative results must be combined with clinical observations
and patient history.
Nucleic Acid Amplification test (NAAT)performed on the
[employer] platform.
[2025-03-02 15:40] VITALS: BP 134/70
[2025-03-02] MEDS: LIDOCAINE 4% PATCH TOPICAL (16:27)
--- NOTE | 2025-03-02 16:54 | PTCARENOTE ---
Pt AAO x3; poor vision; forgetful at times. WRAY; OOB to BSC with assist x1/occ uses walker, tires easily. refused OOB to chair activity. VSS. On nc 1 lpm- pulseox 97%, pt with (+) slight orthopnea/ESPINOZA. pt refuses to wean O2 to off; stated 'My
pulseox readings are always good, but I don't feel right off the oxygen'. Abd large, soft, martín PO well. Void son BSC. Afebrile; Lt flank bandaid D/I. Refused offer of Lidoderm patch to back- stated 'I don't need it- I'm fine'. Resting in bed at
present, no c/o. Will continue to monitor.
[2025-03-02] MEDS: ROCEPHIN 1000 MG IV (19:50)
[2025-03-02] MEDS: STERILE WATER FOR INJECTION 10 ML IV (19:51)
[2025-03-02] MEDS: BENADRYL 25 MG PO (21:48)
[2025-03-02 23:55] VITALS: BP 147/70
[2025-03-03 06:00] VITALS: BMI 31.2
[2025-03-03 07:48] LABS: % Basophils 0.5 % (0-2); % Eosinophils 1.9 % (0-6); % Immature Granulocytes 0.4 % (0-0.5); % Lymphocytes 8.7 % (20.5-51.1); % Monocytes 10.1 % (1.7-9.3); % Neutrophils 78.4 % (42.2-75.2); ALT (SGPT) 14 U/L (0-35); AST (SGOT) 34 U/L (14-36); Absolute Basophils 0.1 10^3/uL (0-0.2); Absolute Eosinophils 0.2 10^3/uL (0-0.7); Absolute Lymphocytes 0.9 10^3/uL (1.2-3.4); Absolute Monocytes 1.1 10^3/uL (0.1-0.6); Absolute Neutrophils 8.1 10^3/uL (1.4-6.5); Alkaline Phosphatase 58 U/L (38-126); Blood Urea Nitrogen 21 mg/dl (7-17); Calcium 8.2 mg/dl (8.4-10.2); Carbon Dioxide 24 mmol/L (22-30); Chloride 108 mmol/L (98-107); Estimated Creatinine Clearance 49 ml/min; Glucose 98 mg/dl (70-99); Hematocrit 35.8 % (37.0-47.0); Hemoglobin 11.7 g/dL (12.0-16.0); Mean Corp Hgb Conc. 32.7 g/dL (33.0-37.0); Mean Corpuscular Hgb 28.7 pg (27.0-31.0); Mean Platelet Volume 10.2 fL (7.4-10.4); Nucleated Red Blood Cells % 0 %; Phosphorus 2.3 mg/dl (2.5-4.5); Platelet Count 267 10^3/uL (130-400); Potassium 3.9 mmol/L (3.5-5.1); Red Blood Cell Count 4.07 10^6/uL (4.20-5.40); Red Cell Dist. Width 14.2 % (11.5-14.5); Sodium 134 mmol/L (135-145); Total Bilirubin 0.7 mg/dl (0.2-1.3); Total Protein 5.3 g/dl (6.3-8.2); White Blood Cell Count 10.4 10^3/uL (4.8-10.8); eGFR > 60.00
--- NOTE | 2025-03-03 07:55 | W.PN.PUL.V3 ---
Today's Communication / Plan
-
Wean oxygen
Antibiotics
Await pleural fluid cytology
Assessment
-
Patient is a very pleasant 84-year-old female who presents to the emergency room for worsening shortness of breath. Patient reports that for about 7 to 10 days she has had cough and shortness of breath concerning for bronchitis. She was evaluated
as an outpatient at an urgent care and was treated with albuterol inhaler as well as prednisone for 5 days but she has not felt better. She returned to the urgent care where x-ray was performed which showed a large left-sided pleural effusion and
was referred to emergency room
Hypoxemia with large left pleural effusion
Left pleural effusion-suspect trapped lung
Mediastinal lymphadenopathy
COPD with [id number] smoking history quit 20 years ago
Pneumonia versus compressive atelectasis
Conditions present prior to admission:
DM
HTN
HLD
COPD
Insomnia
Anxiety
Hyperthyroidism. TSH appears to be very high, likely over suppressed thyroid gland. Defer to primary team. Hypothyroidism can also cause pleural effusion.
Plan
Respiratory decompensation likely due to pleural effusion, pneumonia and underlying COPD
Supplemental oxygen as needed-currently on 1 L - 96% saturation
Aspiration precautions
Nebulizers if needed-currently not bronchospastic
Observe off steroids
Culture reviewed-unrevealing thus far
Pleural fluid negative-AFB and fungal stains and cultures pending
Influenza negative
Sputum culture if possible-unable to produce
Pleural fluid cultures
Negative thus far empiric antibiotics-ceftriaxone and doxycycline
Monitor leukocytosis and temperature curve
Thoracentesis 03/01/25--1000 dC-ansgo-zekxsbt fluid-halted due to pleurisy
Pleural fluid analysis 03/01/20257759-aqzebnn-oU 7.37, total protein 3.8, LDH 669, amylase 37
Pleural fluid microbiology 03/01/2025-WBCs seen, no organisms, cultures pending
Pleural fluid cytology 03/01/2025-pending
Follow-up for fluid reaccumulation
Consider repeat therapeutic and potentially diagnostic thoracentesis-patient somewhat leery with significant pleurisy on last thoracentesis
CT chest summarized below-some suspicion for potential underlying malignancy with multiple abnormalities
Await pleural fluid cytology
Dr. Shrestha reviewed with son at the bedside at length on 03/02/2025-based on age and comorbidities he believes the patient would not want to pursue aggressive treatment options if this was an underlying malignancy-he will discuss it with his
brothers and sisters and their mother-if she would not want therapy for malignancy then aggressive needs of workup would also not be recommended-such as bronchoscopy with station 7 lymph node biopsy
DVT prophylaxis-on subcu heparin
Nutrition
Physical therapy
Dr. Shrestha reviewed at length with son at the bedside-see conversation above
Outpatient pulmonary follow-up
Data:
CT Chest 03/01/2025: Large left pleural effusion with thickened peripheral rind, suggesting malignant pleural effusion.
Atelectasis of much of the left upper lobe and left lower lobe.
Narrowing of the proximal left upper lobe and left lower lobe bronchi, raising concern for central neoplasia. Consider follow-up imaging after treatment/thoracentesis.
Enlarged lymph nodes within the mediastinum, suspicious for neoplastic lymphadenopathy.
Focal lucency involving the left side of the L1 vertebral body. This is suspicious for neoplastic lesion, although could possibly represent a benign lesion such as hemangioma. As warranted, consideration for further evaluation with nuclear medicine
bone scan or MRI of the lumbar spine.
Nodularity of the adrenal glands bilaterally, with main differential considerations of adenomas and metastatic disease.
Subjective Data
-
Date of Service:
Date of Service: March 03, 2025
Chief Complaint: Pulmonary Follow Up and Dyspnea Follow Up
Subjective:
Feels about the same, pain overall decreased, no shortness of breath at rest, abdominal pain
Review of Systems
General: Other (Per HPI)
Objective Data
Data Reviewed
Vital Signs / I&O:
Vital Signs
Temp Pulse Resp BP Pulse Ox
98.1 F 82 18 147/70 96
03/02/25 23:55 03/02/25 23:55 03/02/25 23:55 03/02/25 23:55 03/03/25 02:08
Intake and Output
03/02/25 03/03/25 03/04/25
06:59 06:59 06:59
Intake Total 1200 / 1200 1000 / 1000
Balance 1200 / 1200 1000 / 1000
SaO2: 96
Nasal Cannula flow liters per minute: 1
Physical Exam
General: Respiratory Distress (n) and Comfortable
HEENT: Normocephalic, Anicteric and Moist Mucous Membranes
Cardiovascular: Regular Rhythm
Respiratory: Wheeze (n), Crackles, Non-Labored Respirations, Accessory Resp Muscle Use (n) and Stridor (n)
GI: Soft, Non Distended and Non Tender
Neurology: Awake, Alert and No Motor Deficits
Skin: Warm, Dry, Good Color (n), Cyanosis (n) and Jaundice (n)
Labs/Micro/Reports
Lab Data
03/03/25 06:47
03/03/25 06:47
Microbiology
03/01/25 11:41 Pleural Fluid Body Fluid Culture - Preliminary
No Growth After 18-24 Hours
03/01/25 11:41 Pleural Fluid Gram Stain - Preliminary
03/01/25 11:41 Pleural Fluid Fungal Culture - Preliminary
Culture in progress.
Positive cultures are reported as soon as detected.
Final report to follow in four to five weeks.
02/28/25 19:09 Nasal Swab Influenza Types A & B (RICHARD) - Final
Negative for Influenza A & B, NAAT
Negative results must be combined with clinical observations
and patient history.
Nucleic Acid Amplification test (NAAT)performed on the
[employer] platform.
[2025-03-03 08:28] VITALS: BP 157/74
[2025-03-03] MEDS: VIBRAMYCIN 100 MG PO ×2 (09:10→20:47)
[2025-03-03] MEDS: TRICOR 145 MG PO (09:10)
[2025-03-03] MEDS: ZOLOFT 50 MG PO (09:10)
[2025-03-03] MEDS: COZAAR 100 MG PO (09:11)
[2025-03-03] MEDS: LIDOCAINE 4% PATCH 2 PATCH TOPICAL (09:11)
[2025-03-03] MEDS: TAPAZOLE 10 MG PO (09:11)
[2025-03-03] MEDS: HEPARIN 5000 UNITS SC ×2 (09:12→20:44)
[2025-03-03 10:05] VITALS: PULSE 80; O2SAT 96
--- NOTE | 2025-03-03 11:35 | W.PN.HOSP.TC ---
Today's Communication/Plan
-
see a/p
Assessment / Plan
Assessment / Plan
Physical Exam
General: no acute distress, appears comfortable at this time.
HEENT: Normocephalic and Atraumatic
Respiratory: Decreased Breath Sounds LLL. otherwise cta throughout rest of left and all of right lung
Cardiac: Regular Rhythm and S1/S2
GI: Soft, Nontender, Nondistended and Normal Bowel Sounds
Skin: Warm and Dry
Neuro: AO x 3 conversant coherent
Psych: Calm
84F COPD HTN HLD Depression/Anxiety Hyperthyroidism here for large left pleural effusion suspected malignant
acute hypoxic respiratory failure secondary to left sided large pleural effusion
-IR eval appreciated 1000 ML drained during thoracentesis
-follow up pathology results
-CT scan appreciated concerning for central neoplasia, neoplastic lymphadenopathy, possible L1 vertebrae neoplastic lesion, nodularity adrenal glands possible adenomas vs met dz
-wean o2 as tolerated
-Pulm eval appreciated patient/family considering how aggressive they want to pursue malignancy work up.
sepsis secondary to likely pna with pleural effusion
-ceftriaxone doxycycline
-follow fluid cultures
COPD�no acute exacerbation
-Continue albuterol inhaler as needed, fluticasone 100/50 mcg 1 puff twice daily
Acute on chronic anxiety/depression
Patient on Zoloft 25 mg daughter increased Zoloft to 25 mg twice daily due to extreme anxiety, crying tearful for several months she increased it over the past 1 week
Cont Zoloft 50 mg daily started this hospitalization
HTN
Continue losartan 100 mg daily with hold parameters
HLD
- Continue fenofibrate 145 mg daily
Hyperthyroidism
Iatrogenic Hypothyroidism
-TSH elevated with suppressed free T4 reflex
-home Methimazole 10 mg twice daily reduced to daily
-repeat TFT in 1 month recommended
Insomnia
- Reports melatonin makes her feel agitated and itchy
- Benadryl prn
PT/OT eval appreciated SNF rehab
DVT ppx heparin
Full Code
Discussed with patient and patient's daughter Karen
I spent a total of 45 minutes with the patient or on the floor. More than 50% of this time involved counseling and coordination of care.
Anticipated Discharge: 24 - 48 hours
Subjective/Interval History
-
Date of Service: March 03, 2025
no acute distress resting comfortable in bed. Weaning down on oxygen supplementation 1L.
Objective Data
-
Labs:
Laboratory Results
03/03/25
06:47
WBC 10.4
Hgb 11.7 L
Hct 35.8 L
Plt Count 267
Sodium 134 L
Potassium 3.9
Chloride 108 H
Carbon Dioxide 24
BUN 21 H
Creatinine 0.7
Glucose 98
Calcium 8.2 L
Total Bilirubin 0.7
AST 34
ALT 14
Alkaline Phosphatase 58
Vital Signs:
Vital Signs
Temp Pulse Resp BP Pulse Ox
97.9 F 79 18 157/74 96
03/03/25 08:28 03/03/25 09:11 03/03/25 08:28 03/03/25 09:11 03/03/25 08:28
I&O
03/02/25 03/03/25 03/04/25
06:59 06:59 06:59
Intake Total 1200 / 1200 1000 / 1000
Balance 1200 / 1200 1000 / 1000
--- NOTE | 2025-03-03 14:16 | PTCARENOTE ---
Assumed care of pt from previous nurse. Pt denies pain. Pt lungs are diminished, pt is on 1L via nc sating 96%. Pt call ling is within reach, pt rings beverly. will cont to monitor.
[2025-03-03] MEDS: NEUTRA-PHOS POWDER PACKET 250 MG PO ×3 (14:22→20:48)
[2025-03-03 15:47] VITALS: BP 140/75
[2025-03-03] MEDS: BENADRYL 25 MG PO (20:47)
[2025-03-03] MEDS: ROCEPHIN 1000 MG IV (20:50)
[2025-03-03] MEDS: STERILE WATER FOR INJECTION 10 ML IV (20:51)
[2025-03-03 23:55] VITALS: BP 154/77
[2025-03-04 06:00] VITALS: BMI 31.2
[2025-03-04 07:22] LABS: Hematocrit 35.2 % (37.0-47.0); Hemoglobin 11.6 g/dL (12.0-16.0); Mean Platelet Volume 10.2 fL (7.4-10.4); Platelet Count 260 10^3/uL (130-400); Red Cell Dist. Width 14.1 % (11.5-14.5)
[2025-03-04 07:29] LABS: Blood Urea Nitrogen 22 mg/dl (7-17); Calcium 8.4 mg/dl (8.4-10.2); Carbon Dioxide 26 mmol/L (22-30); Chloride 104 mmol/L (98-107); Estimated Creatinine Clearance 57 ml/min; Glucose 98 mg/dl (70-99); Magnesium 1.9 mg/dl (1.6-2.3); Phosphorus 2.6 mg/dl (2.5-4.5); Potassium 3.7 mmol/L (3.5-5.1); Sodium 137 mmol/L (135-145); eGFR > 60.00
[2025-03-04 07:40] VITALS: BP 153/76
[2025-03-04] MEDS: ZOLOFT 50 MG PO (08:56)
[2025-03-04] MEDS: LIDOCAINE 4% PATCH 2 PATCH TOPICAL (08:56)
[2025-03-04] MEDS: TRICOR 145 MG PO (08:57)
[2025-03-04] MEDS: TAPAZOLE 10 MG PO (08:57)
[2025-03-04] MEDS: COZAAR 100 MG PO (08:57)
[2025-03-04] MEDS: NEUTRA-PHOS POWDER PACKET 250 MG PO (08:57)
[2025-03-04] MEDS: HEPARIN 5000 UNITS SC ×2 (08:57→20:51)
[2025-03-04] MEDS: VIBRAMYCIN 100 MG PO ×2 (08:57→20:53)
--- NOTE | 2025-03-04 09:14 | W.PN.HOSP.TC ---
Today's Communication/Plan
-
Wean O2 supplementation as tolerated
cont abx
out of bed to chair
PT/OT
follow path report
Assessment / Plan
Assessment / Plan
Physical Exam
General: no acute distress, appears comfortable at this time.
HEENT: Normocephalic and Atraumatic
Respiratory: Decreased Breath Sounds LLL. otherwise cta throughout rest of left and all of right lung
Cardiac: Regular Rhythm and S1/S2
GI: Soft, Nontender, Nondistended and Normal Bowel Sounds
Skin: Warm and Dry
Neuro: AO x 3 conversant coherent
Psych: Calm
84F COPD HTN HLD Depression/Anxiety Hyperthyroidism here for large left pleural effusion suspected malignant
acute hypoxic respiratory failure secondary to left sided large pleural effusion
-IR eval appreciated 1000 ML drained during thoracentesis
-follow up pathology results
-CT scan appreciated concerning for central neoplasia, neoplastic lymphadenopathy, possible L1 vertebrae neoplastic lesion, nodularity adrenal glands possible adenomas vs met dz
-wean o2 as tolerated
-out of bed to chair
-Pulm eval appreciated
sepsis secondary to likely pna with pleural effusion
-ceftriaxone doxycycline planned for 4 days abx treatment
-follow fluid cultures
COPD�no acute exacerbation
-Continue albuterol inhaler as needed, fluticasone 100/50 mcg 1 puff twice daily
Acute on chronic anxiety/depression
Patient on Zoloft 25 mg daughter increased Zoloft to 25 mg twice daily due to extreme anxiety, crying tearful for several months she increased it over the past 1 week
Cont Zoloft 50 mg daily started this hospitalization
HTN
Continue losartan 100 mg daily with hold parameters
HLD
- Continue fenofibrate 145 mg daily
Hyperthyroidism
Iatrogenic Hypothyroidism
-TSH elevated with suppressed free T4 reflex
-home Methimazole 10 mg twice daily reduced to daily
-repeat TFT in 1 month recommended
Insomnia
- Reports melatonin makes her feel agitated and itchy
- Benadryl prn
PT/OT eval appreciated SNF rehab
DVT ppx heparin
Full Code
Discussed with patient and patient's son oBgdan
I spent a total of 40 minutes with the patient or on the floor. More than 50% of this time involved counseling and coordination of care.
Anticipated Discharge: 24 - 48 hours
Subjective/Interval History
-
Date of Service: March 04, 2025
No acute distress resting comfortably in bed. Reports overall feeling well though weak and continues to report pain at thoracentesis injection site but declines pain meds including Tylenol. Reports lidocaine patches helping with pain. Son Bogdan
present during evaluation.
Objective Data
-
Labs:
Laboratory Results
03/04/25
06:45
WBC 11.0 H
Hgb 11.6 L
Hct 35.2 L
Plt Count 260
Sodium 137
Potassium 3.7
Chloride 104
Carbon Dioxide 26
BUN 22 H
Creatinine 0.6
Glucose 98
Calcium 8.4
Vital Signs:
Vital Signs
Temp Pulse Resp BP Pulse Ox
97.7 F 81 16 153/76 96
03/04/25 07:40 03/04/25 07:40 03/04/25 07:40 03/04/25 07:40 03/04/25 07:40
I&O
03/03/25 03/04/25 03/05/25
06:59 06:59 06:59
Intake Total 1000 / 1000
Balance 1000 / 1000
--- NOTE | 2025-03-04 09:21 | W.PN.PUL.V3 ---
Today's Communication / Plan
-
Pleural fluid cytology 03/01/[id number]. Szekely called down to cytology-it is diagnostic-awaiting stains and final pathology report
Assessment
-
Patient is a very pleasant 84-year-old female who presents to the emergency room for worsening shortness of breath. Patient reports that for about 7 to 10 days she has had cough and shortness of breath concerning for bronchitis. She was evaluated
as an outpatient at an urgent care and was treated with albuterol inhaler as well as prednisone for 5 days but she has not felt better. She returned to the urgent care where x-ray was performed which showed a large left-sided pleural effusion and
was referred to emergency room
Hypoxemia with large left pleural effusion
Left pleural effusion-suspect trapped lung
Mediastinal lymphadenopathy
COPD with [id number] smoking history quit 20 years ago
Pneumonia versus compressive atelectasis
Conditions present prior to admission:
DM
HTN
HLD
COPD
Insomnia
Anxiety
Hyperthyroidism. TSH appears to be very high, likely over suppressed thyroid gland. Defer to primary team. Hypothyroidism can also cause pleural effusion.
Plan
Respiratory decompensation likely due to pleural effusion, pneumonia and underlying COPD
Supplemental oxygen as needed-currently on 1 L - 96% saturation
Aspiration precautions
Nebulizers if needed-currently not bronchospastic
Observe off steroids
Culture reviewed-unrevealing thus far
Pleural fluid negative-AFB and fungal stains and cultures pending
Influenza negative
Sputum culture if possible-unable to produce
Pleural fluid cultures-negative
Negative thus far empiric antibiotics-ceftriaxone and doxycycline
Monitor leukocytosis and temperature curve
Thoracentesis 03/01/25--1000 [id number] fluid-halted due to pleurisy
Pleural fluid analysis 03/01/20252235-[id number]-hE 7.37, total protein 3.8, LDH 669, amylase 37
Pleural fluid microbiology 03/01/2025-WBCs seen, no organisms, cultures pending
Pleural fluid cytology 03/01/20256384-[id number]-[id number]. Szekely called down to cytology-it is diagnostic-awaiting stains and final pathology report
Follow-up for fluid reaccumulation
Consider repeat therapeutic and potentially diagnostic thoracentesis-patient somewhat leery with significant pleurisy on last thoracentesis
CT chest summarized below-some suspicion for potential underlying malignancy with multiple abnormalities
Await pleural fluid cytology-still pending
Dr. Shrestha reviewed with son at the bedside at length on 03/02/2025-based on age and comorbidities he believes the patient would not want to pursue aggressive treatment options if this was an underlying malignancy-he will discuss it with his
brothers and sisters and their mother-if she would not want therapy for malignancy then aggressive needs of workup would also not be recommended-such as bronchoscopy with station [address] Shrestha reviewed with son at the bedside at length on 03/04/2025-he has spoken to siblings and likely leaning towards nonaggressive therapeutics if malignancy is diagnosed, however, they would like to discuss results with their mother first
DVT prophylaxis-on subcu heparin
Nutrition
Physical therapy
Dr. Shrestha reviewed at length with son at the bedside-see conversation above
Outpatient pulmonary follow-up
Data:
CT Chest 03/01/2025: Large left pleural effusion with thickened peripheral rind, suggesting malignant pleural effusion.
Atelectasis of much of the left upper lobe and left lower lobe.
Narrowing of the proximal left upper lobe and left lower lobe bronchi, raising concern for central neoplasia. Consider follow-up imaging after treatment/thoracentesis.
Enlarged lymph nodes within the mediastinum, suspicious for neoplastic lymphadenopathy.
Focal lucency involving the left side of the L1 vertebral body. This is suspicious for neoplastic lesion, although could possibly represent a benign lesion such as hemangioma. As warranted, consideration for further evaluation with nuclear medicine
bone scan or MRI of the lumbar spine.
Nodularity of the adrenal glands bilaterally, with main differential considerations of adenomas and metastatic disease.
Subjective Data
-
Date of Service:
Date of Service: March 04, 2025
Chief Complaint: Pulmonary Follow Up and Dyspnea Follow Up
Subjective:
Feels about the same, pain controlled, no worsening shortness of breath, productive cough, abdominal pain
Review of Systems
General: Other (Per HPI)
Objective Data
Data Reviewed
Vital Signs / I&O:
Vital Signs
Temp Pulse Resp BP Pulse Ox
97.7 F 81 16 153/76 96
03/04/25 07:40 03/04/25 07:40 03/04/25 07:40 03/04/25 07:40 03/04/25 07:40
Intake and Output
03/03/25 03/04/25 03/05/25
06:59 06:59 06:59
Intake Total 1000 / 1000
Balance 1000 / 1000
SaO2: 96
Nasal Cannula flow liters per minute: 1
Physical Exam
General: Respiratory Distress (n) and Comfortable
HEENT: Normocephalic, Anicteric and Moist Mucous Membranes
Cardiovascular: Regular Rhythm
Respiratory: Wheeze (n), Crackles, Non-Labored Respirations, Accessory Resp Muscle Use (n) and Stridor (n)
GI: Soft, Non Distended and Non Tender
Neurology: Awake, Alert and No Motor Deficits
Skin: Warm, Dry, Good Color (n), Cyanosis (n) and Jaundice (n)
Labs/Micro/Reports
Lab Data
03/04/25 06:45
03/04/25 06:45
Microbiology
03/01/25 11:41 Pleural Fluid Body Fluid Culture - Preliminary
No Growth After 48 Hours
03/01/25 11:41 Pleural Fluid Gram Stain - Preliminary
03/01/25 11:41 Pleural Fluid Fungal Culture - Preliminary
Culture in progress.
Positive cultures are reported as soon as detected.
Final report to follow in four to five weeks.
--- NOTE | 2025-03-04 10:02 | CM ---
Chart reviewed. Therapy rec SNF at d/c. Spoke w/ patient's daughter, Karen, who stated she was made aware of rehab needs from hospitalist. Karen shared she would like patient to be referred to [facility] and [facility]. Karen stated she left
messages w/ both admissions office.
CM placed referrals in [facility] for review
No prior auth needed
Plan: SNF; pending accepting facility
[2025-03-04 15:35] VITALS: BP 168/82
[2025-03-04] MEDS: STERILE WATER FOR INJECTION 10 ML IV (20:52)
[2025-03-04] MEDS: ROCEPHIN 1000 MG IV (20:52)
[2025-03-04] MEDS: BENADRYL 25 MG PO (20:56)
[2025-03-04 23:51] VITALS: BP 130/70
[2025-03-05 06:00] VITALS: BMI 31.4
[2025-03-05 07:35] VITALS: BP 162/80
[2025-03-05 07:45] LABS: Hematocrit 36.3 % (37.0-47.0); Mean Corp Hgb Conc. 33.1 g/dL (33.0-37.0); Mean Corpuscular Hgb 29.3 pg (27.0-31.0); Mean Corpuscular Volume 88.8 fL (81.0-99.0); Mean Platelet Volume 10.4 fL (7.4-10.4); Platelet Count 271 10^3/uL (130-400); Red Blood Cell Count 4.09 10^6/uL (4.20-5.40); Red Cell Dist. Width 14.2 % (11.5-14.5); White Blood Cell Count 12.2 10^3/uL (4.8-10.8)
[2025-03-05] MEDS: ZOLOFT 50 MG PO (07:45)
[2025-03-05] MEDS: TAPAZOLE 10 MG PO (07:45)
[2025-03-05] MEDS: COZAAR 100 MG PO (07:45)
[2025-03-05] MEDS: TRICOR 145 MG PO (07:46)
[2025-03-05] MEDS: LIDOCAINE 4% PATCH 2 PATCH TOPICAL (07:46)
[2025-03-05] MEDS: HEPARIN 5000 UNITS SC ×2 (07:53→20:50)
--- NOTE | 2025-03-05 08:06 | W.PN.PUL.V3 ---
Today's Communication / Plan
-
Pleural fluid cytology pending.
We not seen
Increase activity.
Oncology evaluation noted
Assessment
-
Patient is a very pleasant 84-year-old female who presents to the emergency room for worsening shortness of breath. Patient reports that for about 7 to 10 days she has had cough and shortness of breath concerning for bronchitis. She was evaluated
as an outpatient at an urgent care and was treated with albuterol inhaler as well as prednisone for 5 days but she has not felt better. She returned to the urgent care where x-ray was performed which showed a large left-sided pleural effusion and
was referred to emergency room
Hypoxemia with large left pleural effusion
Left pleural effusion-suspect trapped lung
Mediastinal lymphadenopathy
COPD with [id number] smoking history quit 20 years ago
Pneumonia versus compressive atelectasis
Conditions present prior to admission:
DM
HTN
HLD
COPD
Insomnia
Anxiety
Hyperthyroidism. TSH appears to be very high, likely over suppressed thyroid gland. Defer to primary team. Hypothyroidism can also cause pleural effusion.
Plan
Respiratory decompensation likely due to pleural effusion, pneumonia and underlying COPD
Supplemental oxygen as needed-currently on 1 L - 96% saturation
Aspiration precautions
Nebulizers if needed-currently not bronchospastic
Continue to observe off steroids
Culture reviewed-unrevealing thus far
Pleural fluid negative-AFB and fungal stains and cultures pending
Influenza negative
Sputum culture if possible-unable to produce
Pleural fluid cultures-negative
Negative thus far empiric antibiotics-ceftriaxone and doxycycline
Monitor leukocytosis and temperature curve
Thoracentesis 03/01/25--1000 [id number] fluid-halted due to pleurisy
Pleural fluid analysis 03/01/20251618-[id number]-wU 7.37, total protein 3.8, LDH 669, amylase 37
Pleural fluid microbiology 03/01/2025-WBCs seen, no organisms, cultures pending
Pleural fluid cytology 03/01/20252835-[id number]. Szekely called down to cytology-it is diagnostic-awaiting stains and final pathology report
Follow-up for fluid reaccumulation
Consider repeat therapeutic and potentially diagnostic thoracentesis-patient somewhat leery with significant pleurisy on last thoracentesis.
Oncology evaluation noted-correspondence reviewed.
If pleural fluid is nondiagnostic, consider IR biopsy
CT chest summarized below-some suspicion for potential underlying malignancy with multiple abnormalities
Await pleural fluid cytology-still pending
Dr. Shrestha reviewed with son at the bedside at length on 03/02/2025-based on age and comorbidities he believes the patient would not want to pursue aggressive treatment options if this was an underlying malignancy-he will discuss it with his
brothers and sisters and their mother-if she would not want therapy for malignancy then aggressive needs of workup would also not be recommended-such as bronchoscopy with station [address] lymph node biopsy
[address] Shrestha reviewed with son at the bedside at length on 03/04/2025-he has spoken to siblings and likely leaning towards nonaggressive therapeutics if malignancy is diagnosed, however, they would like to discuss results with their mother first
DVT prophylaxis-on subcu heparin
Nutrition
Physical therapy
Dr. Shrestha reviewed at length with son at the bedside-see conversation above
Outpatient pulmonary follow-up
Data:
CT Chest 03/01/2025: Large left pleural effusion with thickened peripheral rind, suggesting malignant pleural effusion.
Atelectasis of much of the left upper lobe and left lower lobe.
Narrowing of the proximal left upper lobe and left lower lobe bronchi, raising concern for central neoplasia. Consider follow-up imaging after treatment/thoracentesis.
Enlarged lymph nodes within the mediastinum, suspicious for neoplastic lymphadenopathy.
Focal lucency involving the left side of the L1 vertebral body. This is suspicious for neoplastic lesion, although could possibly represent a benign lesion such as hemangioma. As warranted, consideration for further evaluation with nuclear medicine
bone scan or MRI of the lumbar spine.
Nodularity of the adrenal glands bilaterally, with main differential considerations of adenomas and metastatic disease.
Subjective Data
-
Date of Service:
Date of Service: March 05, 2025
Chief Complaint: Pulmonary Follow Up and Dyspnea Follow Up
Subjective:
Denies any worsening shortness of breath, pain controlled, no abdominal pain
Review of Systems
General: Other ( per HPI)
Objective Data
Data Reviewed
Vital Signs / I&O:
Vital Signs
Temp Pulse Resp BP Pulse Ox
98.4 F 82 19 162/80 95
03/04/25 23:51 03/05/25 07:45 03/04/25 23:51 03/05/25 07:45 03/05/25 07:55
Intake and Output
03/04/25 03/05/25 03/06/25
06:59 06:59 06:59
Intake Total 660 / 660
Balance 660 / 660
SaO2: 95
Nasal Cannula flow liters per minute: 1
Physical Exam
General: Respiratory Distress (n) and Comfortable
HEENT: Normocephalic, Anicteric and Moist Mucous Membranes
Cardiovascular: Regular Rhythm
Respiratory: Wheeze (n), Crackles, Non-Labored Respirations, Accessory Resp Muscle Use (n) and Stridor (n)
GI: Soft, Non Distended and Non Tender
Neurology: Awake, Alert and No Motor Deficits
Skin: Warm, Dry, Good Color (n), Cyanosis (n) and Jaundice (n)
Labs/Micro/Reports
Lab Data
03/05/25 07:04
Microbiology
03/01/25 11:41 Pleural Fluid Fungal Smear - Final
No yeast or fungal elements seen.
03/01/25 11:41 Pleural Fluid Fungal Culture - Preliminary
Culture in progress.
Positive cultures are reported as soon as detected.
Final report to follow in four to five weeks.
03/01/25 11:41 Pleural Fluid Body Fluid Culture - Final
NO GROWTH
03/01/25 11:41 Pleural Fluid Gram Stain - Final
[2025-03-05 08:14] LABS: Blood Urea Nitrogen 22 mg/dl (7-17); Calcium 8.5 mg/dl (8.4-10.2); Carbon Dioxide 25 mmol/L (22-30); Chloride 105 mmol/L (98-107); Estimated Creatinine Clearance 57 ml/min; Glucose 96 mg/dl (70-99); Magnesium 1.9 mg/dl (1.6-2.3); Phosphorus 2.7 mg/dl (2.5-4.5); Potassium 3.9 mmol/L (3.5-5.1); Sodium 135 mmol/L (135-145); eGFR > 60.00
--- NOTE | 2025-03-05 08:25 | W.PN.HOSP.TC ---
Today's Communication/Plan
-
see a/p
Assessment / Plan
Assessment / Plan
Physical Exam
General: no acute distress, appears comfortable at this time.
HEENT: Normocephalic and Atraumatic
Respiratory: Decreased Breath Sounds LLL. otherwise cta throughout rest of left and all of right lung
Cardiac: Regular Rhythm and S1/S2
GI: Soft, Nontender, Nondistended and Normal Bowel Sounds
Skin: Warm and Dry
Neuro: AO x 3 conversant coherent
Psych: Calm
84F COPD HTN HLD Depression/Anxiety Hyperthyroidism here for large left pleural effusion suspected malignant
acute hypoxic respiratory failure secondary to left sided large pleural effusion
Suspected Malignant effusion
-IR eval appreciated 1000 ML drained during thoracentesis
-follow up pathology results
-CT scan appreciated concerning for central neoplasia, neoplastic lymphadenopathy, possible L1 vertebrae neoplastic lesion, nodularity adrenal glands possible adenomas vs met dz
-wean o2 as tolerated
-out of bed to chair
-Pulm eval appreciated
-Oncology eval appreciated
possible sepsis secondary to pna with pleural effusion
-ceftriaxone doxycycline, completed 5 days abx treatment, monitor off
-follow fluid cultures NGTD
Nasal congestion
Post-nasal drip
-Claritin
-COVID Flu neg
-[place] nasal spray QID
COPD�no acute exacerbation
-Continue albuterol inhaler as needed, fluticasone 100/50 mcg 1 puff twice daily
Acute on chronic anxiety/depression
Patient on Zoloft 25 mg daughter increased Zoloft to 25 mg twice daily due to extreme anxiety, crying tearful for several months she increased it over the past 1 week
Cont Zoloft 50 mg daily started this hospitalization
HTN
Continue losartan 100 mg daily with hold parameters
HLD
- Continue fenofibrate 145 mg daily
Hyperthyroidism
Iatrogenic Hypothyroidism
-TSH elevated with suppressed free T4 reflex
-home Methimazole 10 mg twice daily reduced to daily
-repeat TFT in 1 month recommended
Insomnia
- Reports melatonin makes her feel agitated and itchy
- Benadryl prn
out of bed to chair
PT/OT eval appreciated SNF rehab
DVT ppx heparin
Full Code
Discussed with patient and patient's sons Bogdan and Cliff
I spent a total of 40 minutes with the patient or on the floor. More than 50% of this time involved counseling and coordination of care.
Anticipated Discharge: 24 - 48 hours
Subjective/Interval History
-
Date of Service: March 05, 2025
Reporting nasal congestion post nasal drip. Also reports appetite loss abd discomfort. Denies constipation diarrhea.
Objective Data
-
Labs:
Laboratory Results
03/05/25
07:04
WBC 12.2 H
Hgb 12.0
Hct 36.3 L
Plt Count 271
Sodium 135
Potassium 3.9
Chloride 105
Carbon Dioxide 25
BUN 22 H
Creatinine 0.6
Glucose 96
Calcium 8.5
Vital Signs:
Vital Signs
Temp Pulse Resp BP Pulse Ox
98.4 F 82 19 162/80 95
03/04/25 23:51 03/05/25 07:45 03/04/25 23:51 03/05/25 07:45 03/05/25 08:06
I&O
03/04/25 03/05/25 03/06/25
06:59 06:59 06:59
Intake Total 660 / 660
Balance 660 / 660
[2025-03-05 09:40] VITALS: BP 144/84; PULSE 84; O2SAT 95
[2025-03-05 10:23] VITALS: BP 144/84; PULSE 84; O2SAT 95
--- NOTE | 2025-03-05 10:44 | CM ---
Per hospitalist, patient not ready for d/c today, likely tomorrow
Updated Rachel/[facility], per Rachel, CM will need to reach out tomorrow about a available bed. This is family's first choice
Updated Nisha/[facility], stated patient has been accepted. Made aware that patient's family has first choice at [facility] [place]
Updated daughter, Karen. CM will update daughter tomorrow on bed availability and/or discharge
Plan: CM to follow up w/ [facility] tomorrow to see if a bed is available
--- NOTE | 2025-03-05 11:07 | CON.ONC ---
Consultation
-
Date Consultation Requested: 03/05/25
Date Consultation Performed: 03/05/25
Requesting Provider: Deejay
Performing Provider: Miki Calderón
Reason for Consultation: Suspected pulmonary malignancy
Impression
Impression
Respiratory insufficiency
Pleural effusion
Radiologic finding some suspicious for primary pulmonary malignancy
Hypertension
Hyperlipidemia
Hyperthyroid
Plan
Plan
Await cytology
Consider IR directed biopsy pending results
If tissue available and malignancy is proven would perform NGS lung panel and assessment for PD-L1
Will follow
Patient History
History of Present Illness
Patient is a very pleasant 84-year-old female who was admitted to the hospital with increasing shortness of breath. She underwent imaging which showed areas concerning for potential mild primary malignancy she has a clinically detectable left
pleural effusion status post thoracentesis. Cytology is pending from this procedure. She is examined sitting in her chair withshortness of breath with mild cough. She reports little production of sputum or episode of hemoptysis. No fever, chills,
chest pain, pleuritic discomfort etc. Does not report any runny nose, sore throat or sick contacts. Patient reports longstanding history of smoking, close to [id number] smoking history. Quit about [address] review reveals large pleural
effusion, possible trapped lung, mediastinal lymphadenopathy.
Past-Medical/Surgical History
Past Medical History
COPD
HTN
HLD
Depression/Anxxiety
TYONEK
Past Surgical History
Left shoulder replacement
Left elbow replacement
Cholecystectomy
Social History
Tobacco: Former Smoker
Alcohol: None
Drug: None
Personal: Single
Living: Alone
Employment: Retired
Family History
Family History: Not pertinent
Allergies / Home Medications
Patient Medication
�Medication �Instructions �Recorded �Confirmed �Last Taken �Type
fenofibrate 145 mg PO DAILY 02/28/25 02/28/25 02/28/25 09:00 History
fluticasone propionate 1 puff inhalation BID 02/28/25 02/28/25 02/28/25 09:00 History
losartan 100 mg tablet 100 mg PO DAILY 02/28/25 02/28/25 02/28/25 09:00 History
methimazole 10 mg PO BID 02/28/25 02/28/25 02/28/25 09:00 History
sertraline 25 mg tablet (Zoloft) 25 mg PO DAILY 02/28/25 02/28/25 02/28/25 09:00 History
Active Medications
Generic Name Dose Route Start Last Admin
Trade Name Freq PRN Reason Stop Dose Admin
Acetaminophen 650 mg 02/28/25 20:49
Acetaminophen 325 Mg Tablet PO 03/28/25 20:48
Q4HPRN PRN
mild pain/PITTMAN/temp> 100.4F
Albuterol/Ipratropium 3 ml 02/28/25 20:49 02/28/25 22:07
Ipratropium 0.5/Albuterol 3 Mg (3 Ml Ampul) INH 3 ml
R Q4HPRN PRN Administration
shortness of breath
Protocol
Diphenhydramine HCl 25 mg 02/28/25 20:49 03/04/25 20:56
Diphenhydramine 25 Mg Capsule PO 03/28/25 20:48 25 mg
HSPRN PRN Administration
insomnia/anxiety
Fenofibrate 145 mg 03/01/25 08:00 03/05/25 07:46
Fenofibrate 145 Mg Tablet PO 03/29/25 07:59 145 mg
DAILY LAKSHMI Administration
Heparin Sodium 5,000 units 02/28/25 20:49 03/05/25 07:53
Heparin 5,000 Units/Ml 1 Ml Vial SC 03/28/25 20:48 5,000 units
Q12 LAKSHMI Administration
Lidocaine 2 patch 03/02/25 14:45 03/05/25 07:46
Lidocaine 4% Topical Patch TOPICAL 03/30/25 14:44 2 patch
DAILY LAKSHMI Administration
Protocol
Losartan Potassium 100 mg 03/01/25 08:00 03/05/25 07:45
Losartan 100 Mg Tablet PO 03/29/25 07:59 100 mg
DAILY LAKSHMI Administration
Methimazole 10 mg 03/04/25 08:00 03/05/25 07:45
Methimazole 5 Mg Tablet PO 04/01/25 07:59 10 mg
DAILY LAKSHMI Administration
Patch Removal 2 patch 03/02/25 20:00 03/04/25 20:54
Remove Lidocaine Patch REMOVE 03/30/25 19:59 2 patch
DAILY@2000 LAKSHMI Administration
Sertraline HCl 50 mg 03/01/25 08:00 03/05/25 07:45
Sertraline 50 Mg Tablet PO 03/29/25 07:59 50 mg
DAILY LAKSHMI Administration
Review of Systems
-
ROS negative for 12 point review of systems with the exception of the abnormalities noted on the HPI.
Physical Exam
-
Physical Exam
General: no acute distress, appears comfortable at this time.
HEENT: Normocephalic and Atraumatic
Respiratory: Decreased Breath Sounds LLL. otherwise cta throughout rest of left and all of right lung
Cardiac: Regular Rhythm and S1/S2
GI: Soft, Nontender, Nondistended and Normal Bowel Sounds
Skin: Warm and Dry
Neuro: AO x 3 conversant coherent
Psych: Calm
Labs
Lab Results
WBC 12.2 10^3/uL (4.8-10.8) H 03/05/25 07:04
RBC 4.09 10^6/uL (4.20-5.40) L 03/05/25 07:04
Hgb 12.0 g/dL (12.0-16.0) 03/05/25 07:04
Hct 36.3 % (37.0-47.0) L 03/05/25 07:04
MCV 88.8 fL (81.0-99.0) 03/05/25 07:04
MCH 29.3 pg (27.0-31.0) 03/05/25 07:04
MCHC 33.1 g/dL (33.0-37.0) 03/05/25 07:04
RDW 14.2 % (11.5-14.5) 03/05/25 07:04
Plt Count 271 10^3/uL (130-400) 03/05/25 07:04
MPV 10.4 fL (7.4-10.4) 03/05/25 07:04
Abs Immat Gran (auto) 0.0 10^3/uL (0-0.05) 03/03/25 06:47
Absolute Neuts (auto) 8.1 10^3/uL (1.4-6.5) H 03/03/25 06:47
Absolute Lymphs (auto) 0.9 10^3/uL (1.2-3.4) L 03/03/25 06:47
Absolute Monos (auto) 1.1 10^3/uL (0.1-0.6) H 03/03/25 06:47
Absolute Eos (auto) 0.2 10^3/uL (0-0.7) 03/03/25 06:47
Absolute Basos (auto) 0.1 10^3/uL (0-0.2) 03/03/25 06:47
Immature Gran % 0.4 % (0-0.5) 03/03/25 06:47
Neutrophils % 78.4 % (42.2-75.2) H 03/03/25 06:47
Lymphocytes % 8.7 % (20.5-51.1) L 03/03/25 06:47
Monocytes % 10.1 % (1.7-9.3) H 03/03/25 06:47
Eosinophils % 1.9 % (0-6) 03/03/25 06:47
Basophils % 0.5 % (0-2) 03/03/25 06:47
Creatinine 0.6 mg/dL (0.6-1.0) 03/05/25 07:04
Vital Signs
Vital Signs
Temp Pulse Resp BP Pulse Ox
98.0 F 82 16 162/80 95
03/05/25 07:35 03/05/25 07:45 03/05/25 07:35 03/05/25 07:45 03/05/25 08:06
[2025-03-05] MEDS: TYLENOL 1000 MG PO (13:08)
[2025-03-05] MEDS: CLARITIN 10 MG PO (13:09)
[2025-03-05] MEDS: OCEAN, SALINE MIST 2 SPRAYS NASAL ×3 (13:09→21:54)
[2025-03-05 13:52] LABS: ALT (SGPT) 16 U/L (0-35); AST (SGOT) 39 U/L (14-36); Albumin 2.9 g/dl (3.5-5.0); Alkaline Phosphatase 68 U/L (38-126); Direct Bilirubin 0.5 mg/dl (0.0-0.4); Total Bilirubin 0.8 mg/dl (0.2-1.3); Total Protein 5.3 g/dl (6.3-8.2)
[2025-03-05 13:54] LABS: COVID-19 Antigen Negative (Negative)
[2025-03-05 15:25] VITALS: BP 154/78
[2025-03-05 23:42] VITALS: BP 154/70
[2025-03-06 06:00] VITALS: BMI 32.3
[2025-03-06] MEDS: LIDOCAINE 4% PATCH 2 PATCH TOPICAL (08:10)
[2025-03-06] MEDS: OCEAN, SALINE MIST 2 SPRAYS NASAL ×3 (08:10→17:11)
[2025-03-06] MEDS: CLARITIN 10 MG PO (08:11)
[2025-03-06] MEDS: HEPARIN 5000 UNITS SC ×2 (08:11→20:16)
[2025-03-06] MEDS: ZOLOFT 50 MG PO (08:11)
[2025-03-06] MEDS: TRICOR 145 MG PO (08:11)
[2025-03-06] MEDS: TAPAZOLE 10 MG PO (08:12)
[2025-03-06] MEDS: COZAAR 100 MG PO (08:13)
--- NOTE | 2025-03-06 08:17 | W.PN.PUL.V3 ---
Today's Communication / Plan
-
.
Wean oxygen.
Increase activity.
Check chest x-ray.
Consider therapeutic left-sided thoracentesis.
Discussed potential future need a Pleurx catheter with son and patient If recurrent pleural effusion requiring repetitive thoracenteses
Reviewed with oncology.
Pulmonary will sign off-. Please call with questions
Assessment
-
Patient is a very pleasant 84-year-old female who presents to the emergency room for worsening shortness of breath. Patient reports that for about 7 to 10 days she has had cough and shortness of breath concerning for bronchitis. She was evaluated
as an outpatient at an urgent care and was treated with albuterol inhaler as well as prednisone for 5 days but she has not felt better. She returned to the urgent care where x-ray was performed which showed a large left-sided pleural effusion and
was referred to emergency room
Hypoxemia with large left pleural effusion
Left pleural effusion-suspect trapped lung
Mediastinal lymphadenopathy
COPD with [id number] smoking history quit 20 years ago
Pneumonia versus compressive atelectasis
Conditions present prior to admission:
DM
HTN
HLD
COPD
Insomnia
Anxiety
Hyperthyroidism. TSH appears to be very high, likely over suppressed thyroid gland. Defer to primary team. Hypothyroidism can also cause pleural effusion.
Plan
Respiratory decompensation likely due to pleural effusion, pneumonia and underlying COPD
Supplemental oxygen as needed-currently on 1 L - 96% saturation
Aspiration precautions
Nebulizers if needed-currently not bronchospastic
Observe off steroids
Culture reviewed-unrevealing thus far
Pleural fluid negative-AFB and fungal stains and cultures pending
Influenza negative
Sputum culture if possible-unable to produce
Pleural fluid cultures-negative
Negative thus far empiric antibiotics-ceftriaxone and doxycycline
Monitor leukocytosis and temperature curve
Thoracentesis 03/01/25--1000 [id number] fluid-halted due to pleurisy
Pleural fluid analysis 03/01/20254615-[id number]-[id number] 7.37, total protein 3.8, LDH 669, amylase 37
Pleural fluid microbiology 03/01/2025-WBCs seen, no organisms, cultures pending
Pleural fluid cytology 03/01/20253920-[id number]. Szekely called down to cytology-it is diagnostic-awaiting stains and final pathology report
Follow-up for fluid reaccumulation
Check chest x-ray 03/06/25 with increased shortness of breath-? Therapeutic Prior to discharge
Consider repeat therapeutic and potentially diagnostic thoracentesis-patient somewhat leery with significant pleurisy on last thoracentesis.
Oncology evaluation noted--reviewed with Dr. Curry
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
Outpatient PET scan and possible liquid biopsy
CT chest summarized below-some suspicion for potential underlying malignancy with multiple abnormalities
Await pleural fluid cytology- positive for poorly differentiated adenocarcinoma-pulmonary or upper gastrointestinal/pancreatic origin
Dr. Shrestha reviewed with son at the bedside at length on 03/02/2025-based on age and comorbidities he believes the patient would not want to pursue aggressive treatment options if this was an underlying malignancy-he will discuss it with his
brothers and sisters and their mother-if she would not want therapy for malignancy then aggressive needs of workup would also not be recommended-such as bronchoscopy with station [address] lymph node biopsy
[address] Shrestha reviewed with son at the bedside at length on 03/04/2025-he has spoken to siblings and likely leaning towards nonaggressive therapeutics if malignancy is diagnosed, however, they would like to discuss results with their mother first
DVT prophylaxis-on subcu heparin
Nutrition
Physical therapy.
Pulmonary will sign off- Please call with questions
Dr. Shrestha reviewed at length with son at the bedside--reviewed the pathology with son, as well as patient-told metastatic cancer to the pleura and treatment options will be discussed with oncology
Outpatient pulmonary follow-up
Data:
CT Chest 03/01/2025: Large left pleural effusion with thickened peripheral rind, suggesting malignant pleural effusion.
Atelectasis of much of the left upper lobe and left lower lobe.
Narrowing of the proximal left upper lobe and left lower lobe bronchi, raising concern for central neoplasia. Consider follow-up imaging after treatment/thoracentesis.
Enlarged lymph nodes within the mediastinum, suspicious for neoplastic lymphadenopathy.
Focal lucency involving the left side of the L1 vertebral body. This is suspicious for neoplastic lesion, although could possibly represent a benign lesion such as hemangioma. As warranted, consideration for further evaluation with nuclear medicine
bone scan or MRI of the lumbar spine.
Nodularity of the adrenal glands bilaterally, with main differential considerations of adenomas and metastatic disease.
Subjective Data
-
Date of Service:
Date of Service: March 06, 2025
Chief Complaint: Pulmonary Follow Up and Dyspnea Follow Up
Subjective:
Increased shortness of breath, no increased pain, no abdominal pain
Review of Systems
General: Other (per HPI)
Objective Data
Data Reviewed
Vital Signs / I&O:
Vital Signs
Temp Pulse Resp BP Pulse Ox
97.9 F 75 20 154/70 99
03/05/25 23:42 03/05/25 23:42 03/05/25 23:42 03/05/25 23:42 03/05/25 23:42
Intake and Output
03/05/25 03/06/25 03/07/25
06:59 06:59 06:59
Intake Total 660 / 660
Balance 660 / 660
SaO2: 99
Nasal Cannula flow liters per minute: 1
Physical Exam
General: Respiratory Distress (n) and Comfortable
HEENT: Normocephalic, Anicteric and Moist Mucous Membranes
Cardiovascular: Regular Rhythm
Respiratory: Wheeze (n), Crackles, Non-Labored Respirations, Accessory Resp Muscle Use (n) and Stridor (n)
GI: Soft, Non Distended and Non Tender
Neurology: Awake, Alert and No Motor Deficits
Skin: Warm, Dry, Good Color (n), Cyanosis (n) and Jaundice (n)
Labs/Micro/Reports
Microbiology
03/05/25 13:17 Nasal Swab Influenza Types A & B (RICHARD) - Final
Negative for Influenza A & B, NAAT
Negative results must be combined with clinical observations
and patient history.
Nucleic Acid Amplification test (NAAT)performed on the
[employer] platform.
03/01/25 11:41 Pleural Fluid Acid Fast Bacilli Smear - Preliminary
03/01/25 11:41 Pleural Fluid Acid Fast Bacilli Culture - Preliminary
03/01/25 11:41 Pleural Fluid Fungal Smear - Final
No yeast or fungal elements seen.
03/01/25 11:41 Pleural Fluid Fungal Culture - Preliminary
Culture in progress.
Positive cultures are reported as soon as detected.
Final report to follow in four to five weeks.
03/01/25 11:41 Pleural Fluid Body Fluid Culture - Final
NO GROWTH
03/01/25 11:41 Pleural Fluid Gram Stain - Final
[2025-03-06 08:30] VITALS: BP 135/84
[2025-03-06 08:33] LABS: Hematocrit 36.6 % (37.0-47.0); Hemoglobin 12.1 g/dL (12.0-16.0); Mean Corp Hgb Conc. 33.1 g/dL (33.0-37.0); Mean Corpuscular Hgb 29.3 pg (27.0-31.0); Mean Corpuscular Volume 88.6 fL (81.0-99.0); Platelet Count 258 10^3/uL (130-400); Red Blood Cell Count 4.13 10^6/uL (4.20-5.40); Red Cell Dist. Width 14.3 % (11.5-14.5); White Blood Cell Count 12.4 10^3/uL (4.8-10.8)
--- NOTE | 2025-03-06 08:42 | W.PN.ONC2 ---
Documented by User: SANTIAGO Storey 03/06/25 10:40
Today's Communication / Plan
-
.
Impression
Impression
Respiratory insufficiency
Pleural effusion
Radiologic finding some suspicious for primary pulmonary malignancy
Hypertension
Hyperlipidemia
Hyperthyroid
Plan
Plan
Dr. Curry discussed with pt and son, Bossman, at bedside that pleural effusion cytology metastatic poorly differentiated adenocarcinoma -NGS lung panel and assessment for PD-L1 pending
If goals remain restorative optimize performance status. PT/OT/nutrition
OP PET will be arranged for complete staging
Subjective/Objective
Subjective
no new complaints
Vital Signs:
Vital Signs
Temp Pulse Resp BP Pulse Ox
98.1 F 78 16 135/84 96
03/06/25 08:30 03/06/25 08:30 03/06/25 08:30 03/06/25 08:30 03/06/25 08:30
Lab Results:
Laboratory Data
WBC 12.4 10^3/uL (4.8-10.8) H 03/06/25 08:12
Hgb 12.1 g/dL (12.0-16.0) 03/06/25 08:12
Plt Count 258 10^3/uL (130-400) 03/06/25 08:12
eGFR > 60.00 03/05/25 07:04
Physical Exam
HEENT: Moist Mucous Membranes; No Jaundice
Cardiology: Normal Sinus Rhythm
Pulmonary: Other (diminished b/l bases)
GI: Soft
Extremities: Pulses Present; No Edema

Documented by User: Hugo Curry MD 03/06/25 11:00
Plan
Plan
Dr. Curry discussed with pt and son, Bossman, at bedside that pleural effusion cytology metastatic poorly differentiated adenocarcinoma -NGS lung panel and assessment for PD-L1 pending
If goals remain restorative optimize performance status. PT/OT/nutrition
OP PET will be arranged for complete staging
Oncology Addendum:
Patient seen and evaluated and agree w/ FLYING SHEAR OPERATOR note and plan as outlined
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
-additional immunostains pending including PD-L1%
-if adequate tumor sampling on pleural fluid - will proceed w/ additional NGS testing
-peripheral blood NGS could be considered if sampling inadequate
-outpt PET/CT
-will arrange outpt f/u
--- NOTE | 2025-03-06 08:50 | W.PN.HOSP.TC ---
Today's Communication/Plan
-
restart abx
wean O2 supplementation as tolerated
out of bed to Chair
discharge planning SNF rehab
Assessment / Plan
Assessment / Plan
Physical Exam
General: no acute distress, appears comfortable at this time.
HEENT: Normocephalic and Atraumatic
Respiratory: Decreased Breath Sounds LLL. otherwise cta throughout rest of left and all of right lung
Cardiac: Regular Rhythm and S1/S2
GI: Soft, Nontender, Nondistended and Normal Bowel Sounds
Skin: Warm and Dry
Neuro: AO x 3 conversant coherent
Psych: Calm
84F COPD HTN HLD Depression/Anxiety Hyperthyroidism here for large left pleural effusion suspected malignant
acute hypoxic respiratory failure secondary to left sided large pleural effusion
Suspected Malignant effusion
-IR eval appreciated 1000 ML drained during thoracentesis
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
-CT scan appreciated concerning for central neoplasia, neoplastic lymphadenopathy, possible L1 vertebrae neoplastic lesion, nodularity adrenal glands possible adenomas vs met dz
-wean o2 as tolerated
-out of bed to chair
-Pulm eval appreciated
-Oncology eval appreciated
-repeat thoracentesis attempted 03/06 only 50 cc drained
possible sepsis secondary to pna with pleural effusion
-ceftriaxone doxycycline, completed 5 days abx treatment, monitor off
-follow fluid cultures NGTD
-given persistent white count elevation sob, abx restarted ceftriaxone Azithromycin
Nasal congestion
Post-nasal drip
-Claritin
-COVID Flu neg
-[place] nasal spray QID
COPD�no acute exacerbation
-Continue albuterol inhaler as needed, fluticasone 100/50 mcg 1 puff twice daily
Acute on chronic anxiety/depression
Patient on Zoloft 25 mg daughter increased Zoloft to 25 mg twice daily due to extreme anxiety, crying tearful for several months she increased it over the past 1 week
Cont Zoloft 50 mg daily started this hospitalization
HTN
Continue losartan 100 mg daily with hold parameters
HLD
- Continue fenofibrate 145 mg daily
Hyperthyroidism
Iatrogenic Hypothyroidism
-TSH elevated with suppressed free T4 reflex
-home Methimazole 10 mg twice daily reduced to daily
-repeat TFT in 1 month recommended
Insomnia
- Reports melatonin makes her feel agitated and itchy
- Benadryl prn
out of bed to chair
PT/OT eval appreciated SNF rehab
DVT ppx heparin
Full Code
Discussed with patient and patient's daughter Karen
I spent a total of 40 minutes with the patient or on the floor. More than 50% of this time involved counseling and coordination of care.
Anticipated Discharge: 24 - 48 hours
Subjective/Interval History
-
Date of Service: March 06, 2025
persistent shortness of breath and white count elevation. Poor appetite. otherwise appears comfortable at rest. remains on oxygen supplementation though low dose.
Objective Data
-
Labs:
Laboratory Results
03/06/25
08:12
WBC 12.4 H
Hgb 12.1
Hct 36.6 L
Plt Count 258
Sodium Pending
Potassium Pending
Chloride Pending
Carbon Dioxide Pending
BUN Pending
Creatinine Pending
Glucose Pending
Calcium Pending
Vital Signs:
Vital Signs
Temp Pulse Resp BP Pulse Ox
98.1 F 78 16 135/84 96
03/06/25 08:30 03/06/25 08:30 03/06/25 08:30 03/06/25 08:30 03/06/25 08:30
I&O
03/05/25 03/06/25 03/07/25
06:59 06:59 06:59
Intake Total 660 / 660
Balance 660 / 660
[2025-03-06 08:59] LABS: Blood Urea Nitrogen 27 mg/dl (7-17); Calcium 8.4 mg/dl (8.4-10.2); Carbon Dioxide 26 mmol/L (22-30); Chloride 106 mmol/L (98-107); Estimated Creatinine Clearance 58 ml/min; Glucose 82 mg/dl (70-99); Magnesium 1.9 mg/dl (1.6-2.3); Phosphorus 2.7 mg/dl (2.5-4.5); Potassium 4.1 mmol/L (3.5-5.1); Sodium 136 mmol/L (135-145); eGFR > 60.00
[2025-03-06] MEDS: ZITHROMAX 500 MG PO (12:30)
[2025-03-06] MEDS: STERILE WATER FOR INJECTION 10 ML IV (12:31)
[2025-03-06] MEDS: ROCEPHIN 1000 MG IV (12:31)
[2025-03-06] MEDS: FLUSH (NSS) 1 FLUSH IV (12:31)
--- NOTE | 2025-03-06 14:29 | CM ---
Per physician patient is not stable for discharge. Plan is for skilled at [facility] when stable.
Plan; Skilled placement at [facility] when stable.
[2025-03-06 16:19] LABS: Body Fluid pH 7.21
[2025-03-06 16:21] LABS: Body Fluid Mononuclear 52.5 %; Body Fluid Polymorphonuclear 47.5 %; Body Fluid WBC 59 /CUMM
[2025-03-06 16:23] LABS: Body Fluid Second Tech FB
[2025-03-06 16:47] LABS: Body Fluid Amylase < 30 U/L; Body Fluid Glucose 47 mg/dl; Body Fluid Protein 3.5 g/dl; Body Fluid Triglycerides 53 mg/dl
[2025-03-06 17:04] LABS: Body Fluid LDH 2275 U/L
[2025-03-06] MEDS: OCEAN, SALINE MIST 50 SPRAYS NASAL (20:19)
[2025-03-06 23:51] VITALS: BP 148/64
[2025-03-07] MEDS: BENADRYL 25 MG PO ×2 (00:25→21:05)
[2025-03-07 06:00] VITALS: BMI 31.0
[2025-03-07 08:08] VITALS: BP 163/83
[2025-03-07 09:02] LABS: Hematocrit 37.9 % (37.0-47.0); Hemoglobin 12.3 g/dL (12.0-16.0); Mean Corp Hgb Conc. 32.5 g/dL (33.0-37.0); Mean Corpuscular Volume 89.4 fL (81.0-99.0); Mean Platelet Volume 10.4 fL (7.4-10.4); Platelet Count 245 10^3/uL (130-400); Red Blood Cell Count 4.24 10^6/uL (4.20-5.40); Red Cell Dist. Width 14.4 % (11.5-14.5); White Blood Cell Count 11.6 10^3/uL (4.8-10.8)
[2025-03-07] MEDS: LIDOCAINE 4% PATCH 2 PATCH TOPICAL (09:03)
[2025-03-07] MEDS: TAPAZOLE 10 MG PO (09:04)
[2025-03-07] MEDS: ZITHROMAX 500 MG PO (09:04)
[2025-03-07] MEDS: OCEAN, SALINE MIST 1 SPRAYS NASAL (09:04)
[2025-03-07] MEDS: TRICOR 145 MG PO (09:04)
[2025-03-07] MEDS: ZOLOFT 50 MG PO (09:05)
[2025-03-07] MEDS: CLARITIN 10 MG PO (09:05)
[2025-03-07] MEDS: HEPARIN 5000 UNITS SC ×2 (09:05→21:05)
[2025-03-07] MEDS: COZAAR 100 MG PO (09:05)
[2025-03-07] MEDS: STERILE WATER FOR INJECTION 10 ML IV (11:27)
[2025-03-07] MEDS: ROCEPHIN 1000 MG IV (11:27)
[2025-03-07 11:38] LABS: Blood Urea Nitrogen 25 mg/dl (7-17); Calcium 8.8 mg/dl (8.4-10.2); Carbon Dioxide 27 mmol/L (22-30); Chloride 105 mmol/L (98-107); Estimated Creatinine Clearance 49 ml/min; Glucose 78 mg/dl (70-99); Magnesium 1.9 mg/dl (1.6-2.3); Phosphorus 2.7 mg/dl (2.5-4.5); Potassium 4.1 mmol/L (3.5-5.1); Sodium 137 mmol/L (135-145); eGFR > 60.00
[2025-03-07] MEDS: OCEAN, SALINE MIST 2 SPRAYS NASAL ×2 (13:39→17:11)
--- NOTE | 2025-03-07 14:14 | W.PN.HOSP.TC ---
Today's Communication/Plan
-
cont abx
wean of O2 supplementation as tolerated
out of bed to chair
PT/OT
discharge planning SNF rehab
Assessment / Plan
Assessment / Plan
Physical Exam
General: no acute distress, appears comfortable at this time.
HEENT: Normocephalic and Atraumatic
Respiratory: Decreased Breath Sounds LLL. otherwise cta throughout rest of left and all of right lung
Cardiac: Regular Rhythm and S1/S2
GI: Soft, Nontender, Nondistended and Normal Bowel Sounds
Skin: Warm and Dry
Neuro: AO x 3 conversant coherent
Psych: Calm
84F COPD HTN HLD Depression/Anxiety Hyperthyroidism here for large left pleural effusion suspected malignant
acute hypoxic respiratory failure secondary to left sided large pleural effusion
Suspected Malignant effusion
-IR eval appreciated 1000 ML drained during thoracentesis
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
-CT scan appreciated concerning for central neoplasia, neoplastic lymphadenopathy, possible L1 vertebrae neoplastic lesion, nodularity adrenal glands possible adenomas vs met dz
-wean o2 as tolerated
-out of bed to chair
-Pulm eval appreciated
-Oncology eval appreciated
-repeat thoracentesis attempted 03/06 only 50 cc drained
possible sepsis secondary to pna with pleural effusion
-ceftriaxone doxycycline, completed 5 days abx treatment
-follow fluid cultures NGTD
-given persistent white count elevation sob, abx restarted ceftriaxone Azithromycin, patient since reports 'feeling better' white count downtrending
Nasal congestion
Post-nasal drip
-Claritin
-COVID Flu neg
-[place] nasal spray QID
COPD�no acute exacerbation
-Continue albuterol inhaler as needed, fluticasone 100/50 mcg 1 puff twice daily
Acute on chronic anxiety/depression
Patient on Zoloft 25 mg daughter increased Zoloft to 25 mg twice daily due to extreme anxiety, crying tearful for several months she increased it over the past 1 week
Cont Zoloft 50 mg daily started this hospitalization
HTN
Continue losartan 100 mg daily with hold parameters
HLD
- Continue fenofibrate 145 mg daily
Hyperthyroidism
Iatrogenic Hypothyroidism
-TSH elevated with suppressed free T4 reflex
-home Methimazole 10 mg twice daily reduced to daily
-repeat TFT in 1 month recommended
Insomnia
- Reports melatonin makes her feel agitated and itchy
- Benadryl prn
out of bed to chair
PT/OT eval appreciated SNF rehab
DVT ppx heparin
Full Code
I spent a total of 38 minutes with the patient or on the floor. More than 50% of this time involved counseling and coordination of care.
Anticipated Discharge: Within 24 hours
Subjective/Interval History
-
Date of Service: March 07, 2025
Reports 'feeling better.' Appetite remains poor. Continues to require 1L oxygen supplementation.
Objective Data
-
Labs:
Laboratory Results
03/07/25
08:23
WBC 11.6 H
Hgb 12.3
Hct 37.9
Plt Count 245
Sodium 137
Potassium 4.1
Chloride 105
Carbon Dioxide 27
BUN 25 H
Creatinine 0.7
Glucose 78
Calcium 8.8
Vital Signs:
Vital Signs
Temp Pulse Resp BP Pulse Ox
97.8 F 82 20 163/83 96
03/07/25 08:08 03/07/25 08:08 03/07/25 08:08 03/07/25 08:08 03/07/25 11:01
I&O
03/06/25 03/07/25 03/08/25
06:59 06:59 06:59
Intake Total 480 / 480
Balance 480 / 480
[2025-03-07 16:14] VITALS: BP 138/76
[2025-03-07] MEDS: OCEAN, SALINE MIST 50 SPRAYS NASAL (21:05)
[2025-03-07 23:19] VITALS: BP 160/81
[2025-03-08 06:00] VITALS: BMI 30.7
[2025-03-08 07:30] VITALS: BP 122/86
--- NOTE | 2025-03-08 07:32 | W.PN.HOSP.TC ---
Today's Communication/Plan
-
dc kenzie sanchezryl d/t concerns possible anticholinergic effects contributing to confusion
Trazodone prn bedtime
cont ceftriaxone for now, completed 3 days Azithromycin 500 mg daily
ID eval requested
Assessment / Plan
Assessment / Plan
Physical Exam
General: no acute distress, appears comfortable though confused and hallucinating as below
HEENT: Normocephalic and Atraumatic
Respiratory: Decreased Breath Sounds LLL. otherwise cta throughout rest of left and all of right lung
Cardiac: Regular Rhythm and S1/S2
GI: Soft, Nontender, Nondistended and Normal Bowel Sounds
Skin: Warm and Dry
Neuro/Psych: Awake alert but confused hallucinating talking to people who aren't there
84F COPD HTN HLD Depression/Anxiety Hyperthyroidism here for large left pleural effusion suspected malignant
acute hypoxic respiratory failure secondary to left sided large pleural effusion
Suspected Malignant effusion
-IR eval appreciated 1000 ML drained during thoracentesis
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
-CT scan appreciated concerning for central neoplasia, neoplastic lymphadenopathy, possible L1 vertebrae neoplastic lesion, nodularity adrenal glands possible adenomas vs met dz
-out of bed to chair
-Pulm eval appreciated
-Oncology eval appreciated
-repeat thoracentesis attempted 03/06 only 50 cc drained
-weaned off oxygen supplementation to room air.
possible sepsis secondary to pna with pleural effusion
-ceftriaxone doxycycline, completed 5 days abx treatment
-follow fluid cultures NGTD
-given persistent white count elevation sob, abx restarted ceftriaxone Azithromycin
-completed 3 days Azithromycin, remains on ceftriaxone, leukocytosis persists, though procalcitonin wnl
-urinalysis bacteriuria but not suggestive of UTI
-ID eval requested
Acute Metabolic Encephalopathy Confusion Hallucination suspect [facility] Delirium vs medication side effects (anticholinergics) vs infection
-CT head appreciated no acute abn's, consider Brain MRI if symptoms cont to persist/worsen (eval for possible brain mets, low suspicion at this time, hx Lt shoulder and elbow replacements 2018)
-vbg wnl
-discontinued bedtime prn Benadryl started here
-switched to prn trazodone sleep
-VBG appreciated unremarkable
-consider low dose zyprexa or seroquel if symptoms persist/worsen
-continuing abx as above
Nasal congestion
Post-nasal drip
-Claritin completed d/t acute confusion as above, possible anticholinergic side effect in combination with benadryl.
-COVID Flu neg
-[place] nasal spray QID switched to PRN
COPD�no acute exacerbation
-Continue albuterol inhaler as needed, fluticasone 100/50 mcg 1 puff twice daily
Acute on chronic anxiety/depression
Patient on Zoloft 25 mg daughter increased Zoloft to 25 mg twice daily due to extreme anxiety, crying tearful for several months she increased it over the past 1 week
Cont Zoloft 50 mg daily started this hospitalization
HTN
Continue losartan 100 mg daily with hold parameters
HLD
- Continue fenofibrate 145 mg daily
Hyperthyroidism
Iatrogenic Hypothyroidism
-TSH elevated with suppressed free T4 reflex
-home Methimazole 10 mg twice daily reduced to daily
-repeat TFT in 1 month recommended
Insomnia
- Reports melatonin makes her feel agitated and itchy
- Benadryl prn discontinued d/t acute confusion concern anticholinergic side effects as above
-Trazodone prn
out of bed to chair
PT/OT eval appreciated SNF rehab
DVT ppx heparin
Full Code
discussed with patient and patient's daughters Karen and Senait at bedside.
I spent a total of 50 minutes with the patient or on the floor. More than 50% of this time involved counseling and coordination of care.
Anticipated Discharge: 24 - 48 hours
Subjective/Interval History
-
Date of Service: March 08, 2025
Weaned off oxygen supplementation, stable respiratory status on room air, patient however confused hallucinating talking to people who aren't there. Daughters Karen and Senait present during evaluation.
Objective Data
-
Labs:
Laboratory Results
03/08/25
07:04
WBC Pending
Hgb Pending
Hct Pending
Plt Count Pending
Sodium Pending
Potassium Pending
Chloride Pending
Carbon Dioxide Pending
BUN Pending
Creatinine Pending
Glucose Pending
Calcium Pending
Vital Signs:
Vital Signs
Temp Pulse Resp BP Pulse Ox
98 F 84 22 160/81 97
03/07/25 23:19 03/07/25 23:19 03/07/25 23:19 03/07/25 23:19 03/07/25 23:19
I&O
03/07/25 03/08/25 03/09/25
06:59 06:59 06:59
Intake Total 480 / 480 290 / 290
Balance 480 / 480 290 / 290
[2025-03-08 07:54] LABS: Hematocrit 35.7 % (37.0-47.0); Mean Corp Hgb Conc. 33.6 g/dL (33.0-37.0); Mean Corpuscular Hgb 29.6 pg (27.0-31.0); Mean Corpuscular Volume 88.1 fL (81.0-99.0); Mean Platelet Volume 10.5 fL (7.4-10.4); Platelet Count 232 10^3/uL (130-400); Red Blood Cell Count 4.05 10^6/uL (4.20-5.40); Red Cell Dist. Width 14.4 % (11.5-14.5); White Blood Cell Count 13.2 10^3/uL (4.8-10.8)
[2025-03-08] MEDS: COZAAR 100 MG PO (09:21)
[2025-03-08] MEDS: TAPAZOLE 10 MG PO (09:21)
[2025-03-08] MEDS: ZITHROMAX 500 MG PO (09:21)
[2025-03-08] MEDS: CLARITIN 10 MG PO (09:21)
[2025-03-08] MEDS: LIDOCAINE 4% PATCH 2 PATCH TOPICAL (09:21)
[2025-03-08] MEDS: HEPARIN 5000 UNITS SC ×2 (09:22→19:43)
[2025-03-08] MEDS: ZOLOFT 50 MG PO (09:22)
[2025-03-08] MEDS: TRICOR 145 MG PO (09:22)
[2025-03-08] MEDS: OCEAN, SALINE MIST 4 SPRAYS NASAL ×3 (09:22→17:17)
[2025-03-08 10:13] LABS: Blood Urea Nitrogen 24 mg/dl (7-17); Calcium 8.8 mg/dl (8.4-10.2); Carbon Dioxide 25 mmol/L (22-30); Chloride 105 mmol/L (98-107); Estimated Creatinine Clearance 49 ml/min; Glucose 90 mg/dl (70-99); Magnesium 1.8 mg/dl (1.6-2.3); Phosphorus 2.4 mg/dl (2.5-4.5); Potassium 4.1 mmol/L (3.5-5.1); Sodium 135 mmol/L (135-145); eGFR > 60.00
[2025-03-08] MEDS: ROCEPHIN 1000 MG IV (11:22)
[2025-03-08] MEDS: STERILE WATER FOR INJECTION 10 ML IV (11:22)
[2025-03-08 11:25] LABS: Venous Blood Gas HCO3 27.1 mmol/L (22-27); Venous Blood Gas O2 Sat % 98.9 %; Venous Blood Gas pCO2 39 mmHg (35-48); Venous Blood Gas pH 7.45 (7.32-7.43); Venous Blood Gas pO2 80 mmHg (30-50)
[2025-03-08] MEDS: VISBIOME 1 CAP PO (13:10)
[2025-03-08 13:46] LABS: Procalcitonin 0.14 ng/ml (0.0-0.25)
[2025-03-08 15:20] VITALS: BP 167/78
[2025-03-08 16:16] VITALS: BP 154/78
--- NOTE | 2025-03-08 16:19 | PTCARENOTE ---
Family concerned of pt being confused today. Pt is Ox3, slightly forgetful and appears more tired today. Pt admits sleeping very well last night. Pt was given Benadryl last night. Pt is afebrile and POX [address] Mosquera made aware. VBG and CT head
ordered.
--- NOTE | 2025-03-08 17:38 | PTCARENOTE ---
Pt was straight catheterized one time at 1730 to obtain a clean urine culture. 150ml sandrita urine drained.
[2025-03-08 17:46] LABS: Urine Albumin 1+ (Neg - Trace); Urine Bilirubin Negative (Negative); Urine Character Clear (Clear); Urine Color Yellow; Urine Glucose Negative (Negative); Urine Ketone 1+ (Negative); Urine Leukocyte Negative (Negative); Urine Nitrite Negative (Negative); Urine Occult Blood Negative (Negative); Urine Specific Gravity 1.025 (<1.030); Urine Urobilinogen Negative (Neg - 1+)
[2025-03-08 18:04] LABS: Urine Bacteria Many (Negative); Urine Red Blood Cell 0-2 /HPF (0-2)
[2025-03-08 18:05] LABS: Urine Amorphous Seen; Urine Mucus Moderate
[2025-03-08] MEDS: DESYREL 25 MG PO (23:10)
[2025-03-08 23:39] VITALS: BP 157/81
[2025-03-09 05:16] VITALS: BMI 30.8
[2025-03-09 07:25] VITALS: BP 167/84
[2025-03-09 07:47] LABS: Hematocrit 35.3 % (37.0-47.0); Hemoglobin 11.7 g/dL (12.0-16.0); Mean Corp Hgb Conc. 33.1 g/dL (33.0-37.0); Mean Corpuscular Volume 87.6 fL (81.0-99.0); Mean Platelet Volume 10.6 fL (7.4-10.4); Platelet Count 235 10^3/uL (130-400); Red Blood Cell Count 4.03 10^6/uL (4.20-5.40); Red Cell Dist. Width 14.6 % (11.5-14.5); White Blood Cell Count 15.3 10^3/uL (4.8-10.8)
[2025-03-09 08:14] LABS: Blood Urea Nitrogen 22 mg/dl (7-17); Calcium 8.5 mg/dl (8.4-10.2); Carbon Dioxide 26 mmol/L (22-30); Chloride 104 mmol/L (98-107); Estimated Creatinine Clearance 49 ml/min; Glucose 99 mg/dl (70-99); Phosphorus 2.6 mg/dl (2.5-4.5); Potassium 3.9 mmol/L (3.5-5.1); Sodium 135 mmol/L (135-145); eGFR > 60.00
[2025-03-09] MEDS: COZAAR 100 MG PO (10:10)
[2025-03-09] MEDS: TRICOR 145 MG PO (10:10)
[2025-03-09] MEDS: TAPAZOLE 10 MG PO (10:10)
[2025-03-09] MEDS: ZOLOFT 50 MG PO (10:10)
[2025-03-09] MEDS: VISBIOME 1 CAP PO (10:10)
[2025-03-09] MEDS: HEPARIN 5000 UNITS SC ×2 (10:10→20:27)
[2025-03-09] MEDS: LIDOCAINE 4% PATCH 2 PATCH TOPICAL (10:11)
[2025-03-09] MEDS: STERILE WATER FOR INJECTION 10 ML IV (11:17)
[2025-03-09] MEDS: ROCEPHIN 1000 MG IV (11:18)
--- NOTE | 2025-03-09 13:01 | CM ---
Plan is for patient to d/c to SNF when stable. Patient accepted at [facility], [facility], [facility] and [facility]. Family is preferring [facility] as first choice. CM will have to inquire about bed availability w/ facilities
whenever patient is stable to d/c.
Per hospitalist, patient's mental status is not back at baseline, will re-evaluate d/c tomorrow. Daughter updated by hospitalist
Plan: SNF when stable
--- NOTE | 2025-03-09 14:36 | W.PN.HOSP.TC ---
Today's Communication/Plan
-
Assessment / Plan
Assessment / Plan
Physical Exam
General: no acute distress, somnolent
HEENT: Normocephalic and Atraumatic
Respiratory: Clear, no wheezing or rhonchi
Cardiac: Regular Rhythm and S1/S2
GI: Soft, Nontender, Nondistended and Normal Bowel Sounds
Skin: Warm and Dry
Neuro/Psych: Somnolent, confused
84F COPD HTN HLD Depression/Anxiety Hyperthyroidism here for large left pleural effusion suspected malignant
acute hypoxic respiratory failure secondary to left sided large pleural effusion
Malignant effusion
-IR eval appreciated 1000 ML drained during thoracentesis, repeat thoracentesis attempted 03/06 only 50 cc drained
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
-CT scan appreciated concerning for central neoplasia, neoplastic lymphadenopathy, possible L1 vertebrae neoplastic lesion, nodularity adrenal glands possible adenomas vs met dz
-Pulm eval appreciated
-Oncology eval appreciated, planning hospice evaluation
-Supplemental oxygen as needed
possible sepsis secondary to pna with pleural effusion
-follow fluid cultures NGTD
-given persistent white count elevation sob, abx restarted ceftriaxone Azithromycin
-completed 3 days Azithromycin, remains on ceftriaxone, leukocytosis persists, though procalcitonin wnl
-urinalysis bacteriuria but not suggestive of UTI
-ID eval requested
Acute Metabolic Encephalopathy Confusion Hallucination suspect [facility] Delirium vs medication side effects (anticholinergics) vs infection
-CT head appreciated no acute abn's, consider Brain MRI if symptoms cont to persist/worsen (eval for possible brain mets, low suspicion at this time, hx Lt shoulder and elbow replacements 2017)
-vbg wnl
-discontinued bedtime prn Benadryl started here
- Holding trazodone
-VBG appreciated unremarkable
-consider low dose zyprexa or seroquel if symptoms persist/worsen
-continuing abx as above
Nasal congestion
Post-nasal drip
-Claritin completed d/t acute confusion as above, possible anticholinergic side effect in combination with benadryl.
-COVID Flu neg
-[place] nasal spray QID switched to PRN
COPD�no acute exacerbation
-Continue albuterol inhaler as needed, fluticasone 100/50 mcg 1 puff twice daily
Acute on chronic anxiety/depression
Patient on Zoloft 25 mg daughter increased Zoloft to 25 mg twice daily due to extreme anxiety, crying tearful for several months she increased it over the past 1 week
Cont Zoloft 50 mg daily started this hospitalization
HTN
Continue losartan 100 mg daily with hold parameters
HLD
- Continue fenofibrate 145 mg daily
Hyperthyroidism
Iatrogenic Hypothyroidism
-TSH elevated with suppressed free T4 reflex
-home Methimazole 10 mg twice daily reduced to daily
-repeat TFT in 1 month recommended
Insomnia
- Reports melatonin makes her feel agitated and itchy
- Benadryl prn discontinued d/t acute confusion concern anticholinergic side effects as above
-Trazodone prn
out of bed to chair
PT/OT eval appreciated SNF rehab
DVT ppx heparin
Full Code
discussed with patient and patient's daughter Karen
I spent a total of 50 minutes with the patient or on the floor. More than 50% of this time involved counseling and coordination of care.
Anticipated Discharge: > 48 hours
Subjective/Interval History
-
Date of Service: March 09, 2025
Patient was seen and examined at bedside this morning. Remains somnolent. Will hold trazodone which she received last night. Vitals stable, even moderately hypertensive.
Objective Data
-
Labs:
Laboratory Results
03/09/25
07:03
WBC 15.3 H
Hgb 11.7 L
Hct 35.3 L
Plt Count 235
Sodium 135
Potassium 3.9
Chloride 104
Carbon Dioxide 26
BUN 22 H
Creatinine 0.7
Glucose 99
Calcium 8.5
Vital Signs:
Vital Signs
Temp Pulse Resp BP Pulse Ox
98.6 F 93 20 167/84 92
03/09/25 07:25 03/09/25 10:10 03/09/25 07:25 03/09/25 10:10 03/09/25 07:25
I&O
03/08/25 03/09/25 03/10/25
06:59 06:59 06:59
Intake Total 290 / 290 720 / 720
Balance 290 / 290 720 / 720
Review of Systems
-
Unable to obtain full review of systems at this time due to: Acuity
Physical Exam
-
General: Appears Chronically Ill
[2025-03-09 15:17] VITALS: BP 155/81
--- NOTE | 2025-03-09 15:18 | CON.ID ---
Consultation
-
Date/Time Consultation Requested: 03/08/2025 1648
Date/Time Consultation Performed: 03/09/2025 1450
Requesting Provider: Dr. Mosquera
Performing Provider: Dr. Nguyen
Reason for Consultation: Encephalopathy
Chief Complaint / Past History
History of Present Illness
Yenifer Be is an 84-year-old female being evaluated at the request of Dr. Mosquera in regards to encephalopathy. History is obtained from chart review alone as the patient could not provide me with any significant history.
According to review notes, the patient had developed shortness of breath over the past 7 to 10 days prior to admission. She was initially seen in an urgent care and prescribed antibiotics, but without improvement. She subsequently returned to the
urgent care center on 02/28, where a chest x-ray was performed, and she was found to have a pleural effusion, and she was sent on to [facility] for further workup.
Here, imaging again revealed a pleural effusion, and the patient ultimately underwent thoracentesis on 03/01, with recovery of 1000 cc of straw-colored pleural fluid. Over the past several days, she has had recent confusion, along with a ongoing
low-grade leukocytosis, and Infectious Diseases assessed, further antimicrobial therapy.
At this time she denies shortness of breath. She denies any cough. She denies any chest pain. She denies any fevers.
Past History
Additional Past Medical History:
COPD
HTN
HLD
Anxiety/depression
TETLIN
Additional Past Surgical History:
Left shoulder surgery
Left elbow surgery
Cholecystectomy
Allergy History:
No Known Allergies Allergy (Unverified 02/28/25 14:14)
Medications Reviewed: Yes
Current Antibiotics:
Ceftriaxone (~d#10)
Azithromycin�DC'd
Doxycycline�DC'd
Social History
Tobacco: Former Smoker
Alcohol: None
Drug: None
Personal: Single
Employment: Not Employed
Review of Systems
Vital Signs
Temp Pulse Resp BP Pulse Ox
98.1 F 91 20 155/81 97
03/09/25 15:17 03/09/25 15:17 03/09/25 15:17 03/09/25 15:17 03/09/25 15:17
Physical Exam
Physical Exam
Constitutional: No Acute Distress, Comfortable, Chronically Ill and Non-toxic
Eyes: Pupils Equal, Pupils Round, No Conjunctival Hemorrhage and Sclera Anicteric
Oral: No Thrush and No Ulcers
Cardiovascular: Regular Rate and S1/S2; Negative S3/S4
Pulmonary: Non Labored; Negative Wheezes or Rales
Gastrointestinal: Soft, Non Tender and Non Distended
Extremities: Edema; Negative Cyanosis or Erythema
Neurological: Awake
Psychological: Confused
Lab / Diagnostic Study Results
03/09/25 07:03
03/09/25 07:03
Abs Immat Gran (auto) 0.0 10^3/uL (0-0.05) 03/03/25 06:47
Absolute Neuts (auto) 8.1 10^3/uL (1.4-6.5) H 03/03/25 06:47
Absolute Lymphs (auto) 0.9 10^3/uL (1.2-3.4) L 03/03/25 06:47
Absolute Monos (auto) 1.1 10^3/uL (0.1-0.6) H 03/03/25 06:47
Absolute Basos (auto) 0.1 10^3/uL (0-0.2) 03/03/25 06:47
Immature Gran % 0.4 % (0-0.5) 03/03/25 06:47
Neutrophils % 78.4 % (42.2-75.2) H 03/03/25 06:47
Lymphocytes % 8.7 % (20.5-51.1) L 03/03/25 06:47
Monocytes % 10.1 % (1.7-9.3) H 03/03/25 06:47
Eosinophils % 1.9 % (0-6) 03/03/25 06:47
Basophils % 0.5 % (0-2) 03/03/25 06:47
Procalcitonin 0.14 ng/ml (0.0-0.25) 03/08/25 12:54
Ur Squamous Epith Cells 6-10 /LPF (Few) 03/08/25 17:37
Microbiology Results
Micro:
03/01/25 11:41 Fungal Smear - Final
Pleural Fluid No yeast or fungal elements seen.
Fungal Culture - Preliminary
Culture in progress.
Positive cultures are reported as soon as detected.
Final report to follow in four to five weeks.
03/06/25 15:42 Body Fluid Culture - Final
Pleural Fluid No Growth After 72 Hours
Gram Stain - Final
03/08/25 17:37 Urine Culture - Pending
Urine
03/06/25 20:31 Respiratory Culture - Final
Sputum Gram Stain - Final
03/05/25 13:17 Influenza Types A & B (RICHARD) - Final
Nasal Swab Negative for Influenza A & B, NAAT
Negative results must be combined with clinical observations
and patient history.
Nucleic Acid Amplification test (NAAT)performed on the
[employer] ID NOW platform.
03/01/25 11:41 Acid Fast Bacilli Smear - Preliminary
Pleural Fluid Acid Fast Bacilli Culture - Preliminary
03/01/25 11:41 Body Fluid Culture - Final
Pleural Fluid NO GROWTH
Gram Stain - Final
02/28/25 19:09 Influenza Types A & B (RICHARD) - Final
Nasal Swab Negative for Influenza A & B, NAAT
Negative results must be combined with clinical observations
and patient history.
Nucleic Acid Amplification test (NAAT)performed on the
[employer] ID NOW platform.
Imaging:
03/08/2025 CT head without contrast: Moderate age-related parenchymal atrophy, greatest in the bilateral frontal lobes. 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 No intra or extra-axial mass, hemorrhage or fluid
collections noted. Please see full dictation for additional detail.
03/06/2025 CXR (portable): No appreciable pneumothorax status post left thoracentesis.
03/01/2025 CT chest with IV contrast: Large left pleural effusion with thickened peripheral rind suggesting malignant pleural effusion. Atelectasis of much of the left upper lobe and left lower lobe. Narrowing of the proximal left upper lobe and
left lower lobe bronchi, raising concern for central neoplasia. Also noted is a focal lucency involving the left side of the L1 vertebral body suspicious for neoplastic lesion.
Assessment / Plan
Encephalopathy
- ?med effect from sedative versus antibiotic
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
Leukocytosis
COPD
HTN
HLD
Anxiety/depression
TETLIN
Recommendations:
At present, procalcitonin is negative, making the likelihood of a bacterial infection less likely. Additionally, change in mental status may possibly be secondary to med effect (ceftriaxone).
Discontinue further antibiotics at present.
Monitor clinical parameters closely.
Await pending biopsy.
Follow mental status.
--- NOTE | 2025-03-09 21:08 | W.PN.ONC2 ---
Today's Communication / Plan
-
Hospice consultation.
Impression
Impression
Respiratory insufficiency
Pleural effusion
Radiologic finding some suspicious for primary pulmonary malignancy
Hypertension
Hyperlipidemia
Hyperthyroid
Delirium
Failure to thrive
Plan
Plan
Pt with what appears to be locally advanced or metastatic lung cancer, declining despite inpt hospital support for more than a week.
Does not apppear to be a good candidate for treatment including immunotherapy.
Recommend hospice consultation. Spoke first with pt's sons, then daughter Elizabeth. At this time they are amenable to discussing hospice.
Subjective/Objective
Chief Complaint
Heme/Onc F/U of probable lung cancer, malignant pleural effusion
Subjective
Pt not offering any complaints. Confused/delirious.
Vital Signs:
Vital Signs
Temp Pulse Resp BP Pulse Ox
98.1 F 91 20 155/81 97
03/09/25 15:17 03/09/25 15:17 03/09/25 15:17 03/09/25 15:17 03/09/25 15:17
Lab Results:
Laboratory Data
WBC 15.3 10^3/uL (4.8-10.8) H 03/09/25 07:03
Hgb 11.7 g/dL (12.0-16.0) L 03/09/25 07:03
Plt Count 235 10^3/uL (130-400) 03/09/25 07:03
eGFR > 60.00 03/09/25 07:03
Physical Exam
Frail-appearing
Orders
Orders
Orders From Last 24 Hours
03/09/25 13:04
Case Management Consult ONCE
[2025-03-10] VITALS: BP 156/78
[2025-03-10 05:37] VITALS: BMI 30.6
[2025-03-10 07:15] VITALS: BP 148/79
[2025-03-10 07:45] LABS: Hematocrit 35.2 % (37.0-47.0); Hemoglobin 11.8 g/dL (12.0-16.0); Mean Corp Hgb Conc. 33.5 g/dL (33.0-37.0); Mean Corpuscular Hgb 29.9 pg (27.0-31.0); Mean Corpuscular Volume 89.1 fL (81.0-99.0); Mean Platelet Volume 10.2 fL (7.4-10.4); Platelet Count 210 10^3/uL (130-400); Red Blood Cell Count 3.95 10^6/uL (4.20-5.40); Red Cell Dist. Width 14.6 % (11.5-14.5); White Blood Cell Count 14.3 10^3/uL (4.8-10.8)
[2025-03-10 08:15] LABS: Blood Urea Nitrogen 22 mg/dl (7-17); Calcium 8.3 mg/dl (8.4-10.2); Carbon Dioxide 25 mmol/L (22-30); Chloride 105 mmol/L (98-107); Estimated Creatinine Clearance 57 ml/min; Glucose 105 mg/dl (70-99); Magnesium 2.1 mg/dl (1.6-2.3); Phosphorus 2.5 mg/dl (2.5-4.5); Sodium 136 mmol/L (135-145); eGFR > 60.00
--- NOTE | 2025-03-10 08:54 | CM ---
Addendum entered by Pillo Chang 03/10/25 09:28:
Per Antonia/ hospice, discussed w/ son, Tony who shared family is hoping for GIP, however, patient may not be appropriate at this time.
Hospitalist and family agreeable to transition patient to comfort measures and monitor over 24 hours. Patient to be transferred to once bed is requested.
Plan: GIP vs SNF w/ hospice
Original Note:
Chart reviewed. CM consulted for hospice
CM spoke w/ daughter, Karen, shared her family is agreeable to discuss hospice further and for CM to place hospice referral
hospice referral entered in [facility] clinical account liaison, Irma, regarding referral and to speak w/ son per Karen's request
Plan: hospice to discuss hospice care w/ family
[2025-03-10] MEDS: ZOLOFT 50 MG PO (09:32)
[2025-03-10] MEDS: COZAAR 100 MG PO (09:32)
[2025-03-10] MEDS: TAPAZOLE 10 MG PO (09:32)
[2025-03-10] MEDS: HEPARIN 5000 UNITS SC (09:32)
[2025-03-10] MEDS: VISBIOME 1 CAP PO (09:32)
[2025-03-10] MEDS: TRICOR 145 MG PO (09:32)
[2025-03-10] MEDS: LIDOCAINE 4% PATCH 2 PATCH TOPICAL (09:33)
--- NOTE | 2025-03-10 10:00 | CHAP ---
Addendum entered by Jillian Samano 03/11/25 09:13:
Msgr. Arellano did not give her Holy Communion. He gave her the Sacrament of the Sick and an Apostolic Pardon.
Original Note:
Msgr. Hugo Arellano of [facility] in [place] gave Yenifer Holy Communion.
--- NOTE | 2025-03-10 10:05 | HOSPNOTE ---
Hospice referral received. Spoke to son Bossman. He is in agreement with initiating comfort measures and making patient a DNR. Reviewed we will monitor on comfort for 24 hours to see if patient then meets inpatient hospice criteria. Bed requested for 2
[address]. Cm and attending are updated and in agreement. Hospice will continue to follow and be available.
--- NOTE | 2025-03-10 14:01 | PTCARENOTE ---
Pt was placed on comfort measures. Pt was transferred to room 2133. Her daughter was present and followed her and transport down.
[2025-03-10 14:22] VITALS: BP 157/80
--- NOTE | 2025-03-10 14:27 | W.PN.HOSP.TC ---
Today's Communication/Plan
-
Assessment / Plan
Assessment / Plan
Physical Exam
General: no acute distress, alert
HEENT: Normocephalic and Atraumatic
Respiratory: Clear, no wheezing or rhonchi
Cardiac: Regular Rhythm and S1/S2
GI: Soft, Nontender, Nondistended and Normal Bowel Sounds
Skin: Warm and Dry
Neuro/Psych: Awake and alert
84F COPD HTN HLD Depression/Anxiety Hyperthyroidism here for large left pleural effusion suspected malignant
acute hypoxic respiratory failure secondary to left sided large malignant effusion
-IR eval appreciated 1000 ML drained during thoracentesis, repeat thoracentesis attempted 03/06 only 50 cc drained
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
-CT scan appreciated concerning for central neoplasia, neoplastic lymphadenopathy, possible L1 vertebrae neoplastic lesion, nodularity adrenal glands possible adenomas vs met dz
-Pulm and oncology guidance appreciated
- Now transition to comfort care on morning of 03/10
possible sepsis secondary to pna with pleural effusion
- Transitioned to comfort care
Acute Metabolic Encephalopathy Confusion Hallucination suspect [facility] Delirium vs medication side effects (anticholinergics) vs infection
-CT head appreciated no acute abn's, consider Brain MRI if symptoms cont to persist/worsen (eval for possible brain mets, low suspicion at this time, hx Lt shoulder and elbow replacements 2018)
-vbg wnl
-discontinued bedtime prn Benadryl started here
- Transitioned to comfort care
Nasal congestion
Post-nasal drip
-Claritin completed d/t acute confusion as above, possible anticholinergic side effect in combination with benadryl.
-COVID Flu neg
-[place] nasal spray QID switched to PRN
COPD
�no acute exacerbation
-Continue albuterol inhaler as needed
Acute on chronic anxiety/depression
-Transitioned to comfort care
HTN
-Comfort care
HLD
- Comfort care
Hyperthyroidism
Iatrogenic Hypothyroidism
-TSH elevated with suppressed free T4 reflex
-home Methimazole 10 mg twice daily reduced to daily
- Now transitioned to comfort care
DVT ppx: None, now on comfort care
CODE STATUS: DNR/DNI, now on comfort care
discussed with patient and patient's son
I spent a total of 40 minutes with the patient or on the floor. More than 50% of this time involved counseling and coordination of care.
Anticipated Discharge: 24 - 48 hours
Subjective/Interval History
-
Date of Service: March 10, 2025
Patient was seen and examined at bedside this morning. Her son was also present. Patient asked what was going on with her and we discussed her cancer diagnosis. Patient and family were in agreement with transition to comfort care which has been
initiated this morning.
Objective Data
-
Labs:
Laboratory Results
03/10/25
07:20
WBC 14.3 H
Hgb 11.8 L
Hct 35.2 L
Plt Count 210
Sodium 136
Potassium 4.0
Chloride 105
Carbon Dioxide 25
BUN 22 H
Creatinine 0.6
Glucose 105 H
Calcium 8.3 L
Vital Signs:
Vital Signs
Temp Pulse Resp BP Pulse Ox
98.2 F 92 16 157/80 97
03/10/25 14:22 03/10/25 14:22 03/10/25 14:22 03/10/25 14:22 03/10/25 14:22
I&O
03/09/25 03/10/25 03/11/25
06:59 06:59 06:59
Intake Total 720 / 720 480 / 480
Balance 720 / 720 480 / 480
Review of Systems
-
History Source: Patient
All other systems: Reviewed and negative
Constitutional: Reports Fatigue and Weakness
Physical Exam
-
General: No Apparent Distress and Appears Chronically Ill
[2025-03-10] MEDS: MORPHINE SULFATE 1 MG IV (14:51)
--- NOTE | 2025-03-10 15:08 | W.PN.ID1 ---
Date of Service
Date of Service: March 10, 2025
Today's Communication
Sign off
Assessment / Plan
Encephalopathy
- ?med effect from sedative versus antibiotic
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
Leukocytosis
COPD
HTN
HLD
Anxiety/depression
AK CHIN
Recommendations:
Pt has been transitioned to comfort measures.
Nothing further to add from a Infectious Disease standpoint at this time.
Will see again at your request.
Chief Complaint
-: Pneumonia
Vital Signs / Physical Exam
Vital Signs
Vital Signs
Temp Pulse Resp BP Pulse Ox
98.2 F 92 16 157/80 97
03/10/25 14:22 03/10/25 14:22 03/10/25 14:22 03/10/25 14:22 03/10/25 14:22
Physical Exam
Constitutional: Comfortable and Chronically Ill
Skin: Negative Rash or Jaundice
Psychological: Calm
Objective Data
Lab Data
Lab Results
03/10/25 07:20
03/10/25 07:20
Estimated Creat Clear 57 ml/min 03/10/25 07:20
Total Bilirubin 0.8 mg/dl (0.2-1.3) 03/05/25 07:04
AST 39 U/L (14-36) H 03/05/25 07:04
ALT 16 U/L (0-35) 03/05/25 07:04
Alkaline Phosphatase 68 U/L (38-126) 03/05/25 07:04
Most recent labs reviewed.
Micro Results:
03/08/25 17:37 Urine Culture - Final
Urine NO GROWTH
03/01/25 11:41 Fungal Smear - Final
Pleural Fluid No yeast or fungal elements seen.
Fungal Culture - Preliminary
Culture in progress.
Positive cultures are reported as soon as detected.
Final report to follow in four to five weeks.
03/06/25 15:42 Body Fluid Culture - Final
Pleural Fluid No Growth After 72 Hours
Gram Stain - Final
03/06/25 20:31 Respiratory Culture - Final
Sputum Gram Stain - Final
03/05/25 13:17 Influenza Types A & B (RICHARD) - Final
Nasal Swab Negative for Influenza A & B, NAAT
Negative results must be combined with clinical observations
and patient history.
Nucleic Acid Amplification test (NAAT)performed on the
[employer] ID NOW platform.
03/01/25 11:41 Acid Fast Bacilli Smear - Preliminary
Pleural Fluid Acid Fast Bacilli Culture - Preliminary
03/01/25 11:41 Body Fluid Culture - Final
Pleural Fluid NO GROWTH
Gram Stain - Final
02/28/25 19:09 Influenza Types A & B (RICHARD) - Final
Nasal Swab Negative for Influenza A & B, NAAT
Negative results must be combined with clinical observations
and patient history.
Nucleic Acid Amplification test (NAAT)performed on the
[employer] ID NOW platform.
Imaging:
03/08/2025 CT head without contrast: Moderate age-related parenchymal atrophy, greatest in the bilateral frontal lobes. 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 No intra or extra-axial mass, hemorrhage or fluid
collections noted. Please see full dictation for additional detail.
03/06/2025 CXR (portable): No appreciable pneumothorax status post left thoracentesis.
03/01/2025 CT chest with IV contrast: Large left pleural effusion with thickened peripheral rind suggesting malignant pleural effusion. Atelectasis of much of the left upper lobe and left lower lobe. Narrowing of the proximal left upper lobe and
left lower lobe bronchi, raising concern for central neoplasia. Also noted is a focal lucency involving the left side of the L1 vertebral body suspicious for neoplastic lesion.
Care Review
Plan reviewed with: Nurse
[2025-03-10 23:42] VITALS: BP 125/64
--- NOTE | 2025-03-11 06:16 | W.PN.UPDATE ---
Update Note
Progress Note Update
Plans for comfort care with hospice noted.
Oncology will sign off.
[2025-03-11 07:24] VITALS: BP 147/75
[2025-03-11] MEDS: LIDOCAINE 4% PATCH 2 PATCH TOPICAL (09:09)
--- NOTE | 2025-03-11 11:37 | W.DCSUMMARY ---
Discharge Summary
Discharge Data
Date of Admission: 02/28/25
Date of Discharge: 03/11/25
Total time spent discharging patient (in min): 40
-
Pending Results: No
Hospital Course
Ms. Be is an 84-year-old female with medical history of COPD, hypertension, hypothyroidism, and depression who presented with a cough and shortness of breath that had not responded to outpatient breathing treatments and steroid regimen. She was
found to have a large left pleural effusion that turned out to be malignant. Approximately 1 L was drained during inpatient thoracentesis and pathology showed poorly differentiated adenocarcinoma which is likely locally advanced or metastatic lung
cancer. She she was evaluated by oncology while inpatient and is not a good candidate for treatment including immunotherapy. The patient and her family decided to transition to comfort care. She is now being admitted into inpatient hospice.
Physical Exam
General: no acute distress, alert
HEENT: Normocephalic and Atraumatic
Respiratory: Decreased left basilar breath sounds, no wheezing or rhonchi
Cardiac: Regular Rhythm and S1/S2
GI: Soft, Nontender, Nondistended and Normal Bowel Sounds
Skin: Warm and Dry
Neuro/Psych: Awake and alert
Discharge Plan
-
Patient Disposition: Hospice - Inpatient [facility]
Discharge Orders:
Discharge Patient (As Directed); Ordered 03/11/25
Ordered By: Henrry Altamirano
Discharge Date and Time
Print Language: URDU
--- NOTE | 2025-03-11 12:01 | CM ---
Patient admitted to inpatient hospice
Plan: Hospice - Inpatient [facility]
--- NOTE | 2025-03-11 12:18 | HOSPNOTE ---
Patient will be admitted inpatient hospice today. Family in agreement and IV medications are needed for management of pain and shortness of breath. Patient will be seen daily. Attending aware of plan.
--- NOTE | 2025-03-11 12:31 | PTCARENOTE ---
See flipped chart for documentation. Pt admitted to inpatient hospice.
[2025-03-11] MEDS: MORPHINE SULFATE 1 MG IV (13:08)
== END 2025-03-11 13:10 | disposition hospice, inpatient (51) | DRG 180 ==
LOC: 2 NORTH 19:01
PROVIDERS: Clinical Nurse Specialist Family Health; Emergency Medicine; Internal Medicine; Radiology Vascular & Interventional Radiology; ADMITTING PHYSICIAN Internal Medicine; ATTENDING PHYSICIAN Internal Medicine; CONSULT PHYSICIAN Internal Medicine; EMERGENCY PHYSICIAN Emergency Medicine; OTHER PHYSICIAN Internal Medicine Hematology & Oncology; OTHER PHYSICIAN Internal Medicine Infectious Disease
PROC: 0W9B3ZZ Drainage of Left Pleural Cavity, Percutaneous Approach (ICD-10-PCS; 2025-03-01)
DX: C34.90 Malignant neoplasm of unspecified part of unspecified bronchus or lung (principal); G93.41 Metabolic encephalopathy; J96.01 Acute respiratory failure with hypoxia; J91.0 Malignant pleural effusion; J98.11 Atelectasis; F41.9 Anxiety disorder, unspecified; Z11.52 Encounter for screening for COVID-19; Z87.891 Personal history of nicotine dependence; I10 Essential (primary) hypertension; E78.5 Hyperlipidemia, unspecified; E05.90 Thyrotoxicosis, unspecified without thyrotoxic crisis or storm; G47.00 Insomnia, unspecified; F32.A Depression, unspecified; E03.9 Hypothyroidism, unspecified; R62.7 Adult failure to thrive; Z51.5 Encounter for palliative care; Z79.899 Other long term (current) drug therapy
CPT/HCPCS: 88305; 32555; 70450; 71045; 71046; 71260; 80048; 80053; 81003; 81015; 82150; 82248; 82805; 82945; 83615; 83735; 83880; 83986; 84100; 84145; 84157; 84439; 84443; 84478; 84484; 85025; 85027; 87015; 87070; 87086; 87102; 87116; 87205; 87206; 87502; 87811; 88112; 88313; 88341; 88342; 89051; 93005; 94640; 97116; 97163; 97167; 97530; 99285; Q9967

== ENCOUNTER 2025-03-11 13:19 | Inpatient (IN) | payer OTHER, SELFPAY ==
--- NOTE | 2025-03-11 13:53 | HPS.HSE ---
Family Physician
-
Family Physician: NO INTERVIEW UNKNOWN
Chief Complaint
-
Hospice care
History of Present Illness
Ms. Be is an 84-year-old female with medical history of COPD, hypertension, hypothyroidism, and depression who presented with a cough and shortness of breath that had not responded to outpatient breathing treatments and steroid regimen. She was
found to have a large left pleural effusion that turned out to be malignant. Approximately 1 L was drained during inpatient thoracentesis and pathology showed poorly differentiated adenocarcinoma which is likely locally advanced or metastatic lung
cancer. She she was evaluated by oncology while inpatient and is not a good candidate for treatment including immunotherapy. The patient and her family decided to transition to comfort care. She is now being admitted into inpatient hospice.
Medical History
Past Medical History
Past Medical History: Reports Other (COPD, hypertension, hypothyroidism, and depression)
Past Surgical History: Reports Cholecystectomy
Social History
Tobacco: Former Smoker
Alcohol: None
Drug: None
Family History
Family History: Not pertinent
Allergies / Home Medications
Allergies reflects when Allergies were last updated in [facility] ([facility]
Home Medications with original date entered in [facility] ([facility])
Allergy/Medication List:
Allergies
Allergy/AdvReac Type Severity Reaction Status Date / Time
No Known Allergies Allergy Unverified 02/28/25 14:14
Home Medications
fenofibrate 145 mg PO DAILY 02/28/25
fluticasone propionate 1 puff inhalation BID 02/28/25
losartan 100 mg tablet 100 mg PO DAILY 02/28/25
methimazole 10 mg PO BID 02/28/25
sertraline 25 mg tablet (Zoloft) 25 mg PO DAILY 02/28/25
Review of Systems
-
History Source: Patient
A 12 point ROS was completed and negative except as noted: Yes
Constitutional: Reports Fatigue
Respiratory: Reports Trouble Breathing
Physical Exam
Physical Exam
General: No Apparent Distress
Impression/Plan
-
Physical Exam
General: no acute distress, alert
HEENT: Normocephalic and Atraumatic
Respiratory: Decreased left basilar breath sounds, no wheezing or rhonchi
Cardiac: Regular Rhythm and S1/S2
GI: Soft, Nontender, Nondistended and Normal Bowel Sounds
Skin: Warm and Dry
Neuro/Psych: Awake and alert
Ms. Be is an 84-year-old female with medical history of COPD, hypertension, hypothyroidism, and depression who presented with a cough and shortness of breath that had not responded to outpatient breathing treatments and steroid regimen. She was
found to have a large left pleural effusion that turned out to be malignant. Approximately 1 L was drained during inpatient thoracentesis and pathology showed poorly differentiated adenocarcinoma which is likely locally advanced or metastatic lung
cancer. She she was evaluated by oncology while inpatient and is not a good candidate for treatment including immunotherapy. The patient and her family decided to transition to comfort care. She is now being admitted into inpatient hospice.
Hospice care:
- Comfort measures have been initiated including as needed Ativan and morphine
DVT prophylaxis: None
CODE STATUS: DNR/DNI
Total time spent on today's encounter was 60 minutes
[2025-03-11 15:30] VITALS: BP 123/61
--- NOTE | 2025-03-11 21:09 | HOSPNOTE ---
Patient has been admitted inpatient level of hospice care. Patient is inpatient level of care for the management of pain and dyspnea that could not be managed in the outpatient setting. Discharge planning continues. Hospice will visit daily.
[2025-03-12 07:40] VITALS: BP 141/66
--- NOTE | 2025-03-12 11:51 | W.PN.HOSP.TC ---
Today's Communication/Plan
-
Assessment / Plan
Assessment / Plan
Physical Exam
General: no acute distress, alert
HEENT: Normocephalic and Atraumatic
Respiratory: Decreased left basilar breath sounds, no wheezing or rhonchi
Cardiac: Regular Rhythm and S1/S2
GI: Soft, Nontender, Nondistended and Normal Bowel Sounds
Skin: Warm and Dry
Neuro/Psych: Awake and alert
Ms. Be is an 84-year-old female with medical history of COPD, hypertension, hypothyroidism, and depression who presented with a cough and shortness of breath that had not responded to outpatient breathing treatments and steroid regimen. She was
found to have a large left pleural effusion that turned out to be malignant. Approximately 1 L was drained during inpatient thoracentesis and pathology showed poorly differentiated adenocarcinoma which is likely locally advanced or metastatic lung
cancer. She she was evaluated by oncology while inpatient and is not a good candidate for treatment including immunotherapy. The patient and her family decided to transition to comfort care. She is now being admitted into inpatient hospice.
Hospice care:
- Comfort measures have been initiated including as needed Ativan and morphine
DVT prophylaxis: None
CODE STATUS: DNR/DNI
Total time spent on today's encounter was 40 minutes
Anticipated Discharge: > 48 hours
Subjective/Interval History
-
Date of Service: March 12, 2025
Patient was seen and examined at bedside this morning. Family also present. She is feeling generally well and was able to eat some pancakes for breakfast. Still feeling very fatigued.
Objective Data
-
Vital Signs:
Vital Signs
Temp Pulse Resp BP Pulse Ox
97.9 F 88 18 141/66 89
03/12/25 07:40 03/12/25 07:40 03/12/25 07:40 03/12/25 07:40 03/12/25 07:40
Review of Systems
-
History Source: Patient
All other systems: Reviewed and negative
Constitutional: Reports Fatigue
Physical Exam
-
General: No Apparent Distress
[2025-03-12] MEDS: ATIVAN 1 MG IV ×2 (12:33→22:24)
[2025-03-12] MEDS: MORPHINE SULFATE 1 MG IV ×3 (12:34→23:06)
--- NOTE | 2025-03-12 13:38 | HOSPNOTE ---
Patient is extremely short of breath and was medicated with morphine and ativan. Patient was unable to have a full conversation do to the shortness of breath. The patient responds well to the medications however it does not last long and needs to
be medicated again. Patient was incontinent of urine so a henderson catheter 16F was placed without difficulty. Patient does get anxious at times and is starting to get confused. Family bedside and emotional support provided. Patient continues to be
inpatient appropriate for IV medications for shortness of breath, pain and anxiety. Patient will be see daily.
--- NOTE | 2025-03-12 15:24 | CM ---
Chart reviewed and patient is on [facility] will follow with progress.
Plan GIP hospice.
--- NOTE | 2025-03-12 15:29 | HOSPNOTE ---
Ocularist visited 84 year old patient to conduct Initial METER READER CHIEF Assessment. Patient recently admitted onto Hospice Services and GIP Level of Care with the Primary Diagnosis of Lung Cancer. Nurse reported catheter placed, medications
administered, and patient resting comfortably. METER READER CHIEF greeted patient and family member while entering the room. Family member greeted METER READER CHIEF and introduced herself as Mitra patient's granddaughter. METER READER CHIEF leaned near patient's bed and greeted patient again,
no response. Patient lying in bed asleep and appeared to be resting comfortably, no signs of pain and/or distressed observed. Irma entered patient's room to assess patient. Patient's daughter Karen entered the room and greeted METER READER CHIEF. Irma and
Karen spoke briefly. METER READER CHIEF explained to Karen and Mitra Crusher Assembler role as it relates to the Hospice Team. Karen reported patient is known by 'Warner Godwin' because she loves sparkles and major and the grandchildren gave her that name. Karen
and Mitra reported patient's wardrobe was nothing but sparkles including t-shirts. Patient and spouse were for 67 years and they met at a dance in [place]. Spouse spoiled patient as he did everything for her, scheduled her appointments,
handled the finances/bills, and took her wherever she needed to go. Spouse and patient took 2 vacations a year together by themselves. 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
and dinner. [place] and [place] Patient has a [place] house and each family had their own room. Patient has 6 children, 4 sons Bogdan, Cliff, Bossman, and David and 2 daughters Adriane, 14 grandchildren and 7 great
grandchildren. Karen reported family is coping appropriately and supportive. Senait is the POA. Karen reported patient always kept her hair done and never left home without her make up. Karen and Mitra reported patient would say she had to 'put her
lips on', meaning she had to put her lipstick on. Mitra reported patient asked her to fix her hair yesterday because that's important. Karen reported patient's son Bogdan had a Swimming Pool Servicer to visit yesterday. Patient is [employer] and affiliated with [employer] and wishes to be buried there along with her spouse. Karen reported patient requested for Tasha to do her hair and makeup as Tasha was patient's old beautician in [place]. Karen reported she's going to have Senait to make
outreach to Tasha for patient's request. Emotional Support Provided. Patient meets GIP criteria for SN Assessments, IV medications for shortness of breath, pain, and anxiety that could not be managed at home and/or in an Outpatient setting.
Discharge planning continues.
METER READER CHIEF will conduct visits once a week while on GIP Level of Care to provide supportive services and to monitor for additional services.
[2025-03-12 19:57] VITALS: BP 105/48
[2025-03-12] MEDS: ROBINUL 0.2 MG IV (23:00)
[2025-03-13] MEDS: MORPHINE SULFATE 1 MG IV ×2 (00:12→01:18)
[2025-03-13] MEDS: MORPHINE 100 IV (01:53)
[2025-03-13] MEDS: ROBINUL 0.2 MG IV ×2 (03:24→08:57)
[2025-03-13] MEDS: MORPHINE SULFATE 2 MG IV ×6 (03:36→10:16)
[2025-03-13 07:00] VITALS: BP 79/44
[2025-03-13] MEDS: NSS (PRESERVATIVE FREE) 0.5 ML IV (08:57)
[2025-03-13] MEDS: ATIVAN 1 MG IV (08:58)
[2025-03-13] MEDS: TRANSDERM-SCOP 1 PATCH TRANSDERM (09:37)
[2025-03-13] MEDS: TYLENOL/FEVERALL 325 MG RECTAL (09:38)
--- NOTE | 2025-03-13 09:43 | PTCARENOTE ---
pt with excessive amount of oral secretions, belly breathing and guttural sound within the room. prn morphine, ativan, robinul given through IV. pt on step 2 gtt initiated by real estate transaction coordinator RN through L forearm IV site. nurse discussed with . pt with
100.5 ax temp, tylenol rectal order placed and scopolamine patch added to prns. family remains at bedside at this time.
[2025-03-13] MEDS: MORPHINE SULFATE 4 MG IV (10:53)
--- NOTE | 2025-03-13 11:21 | HOSPNOTE ---
Patient is now on step 4 of a morphine drip and is actively dying, increased secretions and patient was medicated with Robinol and does have a SCOP patch applied. Patient is medicated PRN when turned or repositioned. Patient continues to be
inpatient appropriate for IV titration of morphine and IV ativan as needed. Patient will be seen daily by hospice nurse. Family is present and emotional support provided.
--- NOTE | 2025-03-13 11:51 | W.PN.DEATH ---
Pronouncement of
-
Called to see patient to pronounce.
No spontaneous heart tones or respirations noted.
Patient not responsive to verbal stimuli.
Patient is pronounced .
Time of : 11:45
Date of : 03/13/25
Cause of : Acute hypoxic respiratory failure
Family Notified: Yes
--- NOTE | 2025-03-13 11:53 | W.DCSUMMARY ---
Discharge Summary
Discharge Data
Date of Admission: 03/11/25
Date of Discharge: 03/13/25
Total time spent discharging patient (in min): 40
-
Pending Results: No
Hospital Course
Ms. Be is an 84-year-old female with medical history of COPD, hypertension, hypothyroidism, and depression who presented with a cough and shortness of breath that had not responded to outpatient breathing treatments and steroid regimen. She was
found to have a large left pleural effusion that turned out to be malignant. Approximately 1 L was drained during inpatient thoracentesis and pathology showed poorly differentiated adenocarcinoma which is likely locally advanced or metastatic lung
cancer. She she was evaluated by oncology while inpatient and is not a good candidate for treatment including immunotherapy. The patient and her family decided to transition to comfort care. She was admitted into inpatient hospice.
She in the presence of her loving family at 11:45 AM on 03/13/2025.
Physical exam:
No spontaneous breaths
No heart sounds, no palpable central pulses
Pupils dilated and fixed, corneal reflex absent
No response to noxious stimuli
Patient was pronounced at 11:45 AM. Family present. Condolences offered.
Discharge Plan
-
Patient Disposition:
Date/Time
Date/Time: 03/13/25 11:45
Discharge Date and Time
Print Language: [place]
== END 2025-03-13 13:07 | disposition expired | DRG 951 ==
LOC: 2 NORTH 13:19
PROVIDERS: ADMITTING PHYSICIAN Internal Medicine
DX: Z51.5 Encounter for palliative care (principal); J96.01 Acute respiratory failure with hypoxia; J91.0 Malignant pleural effusion; C34.90 Malignant neoplasm of unspecified part of unspecified bronchus or lung; C79.9 Secondary malignant neoplasm of unspecified site; J44.9 Chronic obstructive pulmonary disease, unspecified; R53.83 Other fatigue; I10 Essential (primary) hypertension; E03.9 Hypothyroidism, unspecified; F32.A Depression, unspecified; Z66 Do not resuscitate; Z90.49 Acquired absence of other specified parts of digestive tract; Z87.891 Personal history of nicotine dependence